=== PATIENT | male | born 1950 | race Caucasian/White ===

== ENCOUNTER → 2016-08-16 | Outpatient (REF) ==
[~2016-08-16] MED LIST: ARTANE 2MG2 MG PO; ASPIRIN 81M81 MG/TA2 PO; AVODART 0.5MG0.5 MG PO; CIPRO 500MG TA500 MG PO; CIPRO500 MG PO; DEPAKOTE 250MG250 MG PO; DESYREL 100MG100 MG PO; EFFEXOR-XR150 MG PO; FLOMAX 0.40.4 MG/CAP PO; FLOMAX0.4 MG PO; GEODON80 MG PO; HYTRIN2 MG PO; KLONOPIN 1MG1 MG PO; KLONOPIN2 MG PO; LAMICTAL; LATUDA80 MG PO; PROLIXIN10 MG PO; PROSCAR 5MG5 MG PO; RAPAFLO8 MG PO; RISPERDAL1 MG PO; RISPERDONE; SEROQUEL; SEROQUEL XR200 MG PO; SEROQUEL XR400 M1 PO; SEROQUEL200 MG PO; SEROQUEL300 MG PO; TRAZADONE HYDR100 MG PO; TRAZODONE HCL100 MG PO; [UNRECOGNIZED DRUG - OTHER] PO
== END ==
LOC: ZLAB.WCH 09:39
DX: Z01.89 Encounter for other specified special examinations (principal)

== ENCOUNTER → 2018-02-19 | Outpatient (REF) | LOC: ZLAB.WCH 18:31 | DX: Z01.89 Encounter for other specified special examinations (principal) ==

== ENCOUNTER 2018-05-06 20:59 | Emergency (ER) | payer MEDICARE, MEDICAID ==
[~2018-05-06] VITALS: Ht 175.3 cm; Wt 81.8 kg
[2018-05-06] MEDS ORDERED: SEROQUEL300 MG PO (21:33)
[2018-05-06 22:01] LABS: COLLECTION METHOD CLEAN CATCH
[2018-05-06 22:04] LABS: BASO # 0.1 (0.0-0.2); BASO % 1.2 % (0.0-2.0); EOS # 0.4 (0.0-0.7); EOS % 6.3 % (0-4.0); GRAN # 3.4 (1.4-6.5); GRAN % 52.3 % (42.2-75.2); HEMOGLOBIN 12.5 g/dl (13.5-18.0); LYMPH # 1.6 (1.2-3.4); LYMPH % 25.1 % (20.0-51.0); MEAN CELL VOLUME 92 fl (80.0-100.0); MEAN CORPUSCULAR HEMOGLOBIN 32 pg (27.0-31.0); MEAN CORPUSCULAR HGB CONC 34 g/dl (33.0-37.0); MEAN PLATELET VOLUME 9.1 fl (7.4-10.4); MONO % 14.9 % (1.7-9.3); PLATELET COUNT 234 K/mm3 (130-400); RED BLOOD COUNT 3.95 M/mm3 (4.20-5.60); REDCELL DISTRIBUTION WIDTH-CV 12.1 % (11.5-14.5)
[2018-05-06 22:07] LABS: HEMATOCRIT 36.4 % (42.0-52.0)
[2018-05-06 22:10] LABS: PH 7 (5-8); SQUAMOUS EPITHELIAL None Seen /hpf; URINE APPEARANCE Clear; URINE BACTERIA None Seen /hpf; URINE BILIRUBIN Negative (NEGATIVE); URINE BLOOD Negative (NEGATIVE); URINE COLOR Straw; URINE GLUCOSE Negative (NEGATIVE); URINE KETONE Negative (NEGATIVE); URINE LEUKOCYTE ESTERASE Trace (NEGATIVE); URINE NITRATE Negative (NEGATIVE); URINE PROTEIN(semi-quant) Negative (NEGATIVE); URINE RBC 0-2 /hpf; URINE UROBILINOGEN Negative (NEGATIVE)
[2018-05-06 22:24] LABS: ALANINE AMINOTRANSFERASE 31 U/L (21-72); ALBUMIN 4.4 gm/dL (3.5-5.0); ALKALINE PHOSPHATASE 86 U/L (50-136); ANION GAP 6 mmol/L (7-16); AST,SGOT 29 U/L (15-37); BILIRUBIN,TOTAL 0.5 mg/dL (0.0-1.0); BLOOD UREA NITROGEN 8 mg/dL (9-20); CALCIUM 9.1 mg/dL (8.4-10.2); CARBON DIOXIDE 26 mmol/L (22-30); CHLORIDE 97 mmol/L (98-107); CREATININE, serum 1.37 mg/dL (0.66-1.25); GLUCOSE 94 mg/dL (74-106); POTASSIUM 4.3 mmol/L (3.4-5.0); SODIUM 129 mmol/L (137-145); TOTAL PROTEIN 7.8 gm/dL (6.4-8.2)
[2018-05-06 22:27] LABS: TRICYCLIC ANTIDEPRESS URINE NEGATIVE
[2018-05-06 22:28] LABS: ACETAMINOPHEN < 10 ug/mL (10-30); ALCOHOL(ethanol),MEDICAL < 10 mg/dL; SALICYLATE < 1.0 mg/dL
[2018-05-07 07:01] LABS: CALCIUM 8.4 mg/dL (8.4-10.2); CREATININE, serum 1.17 mg/dL (0.66-1.25); POTASSIUM 4.2 mmol/L (3.4-5.0)
[2018-05-07 12:17] VITALS: TEMP 97.8
[2018-05-07 19:40] VITALS: BP 163/87; PULSE 79
== END 2018-05-07 19:40 ==
LOC: COL.ER 20:59
PROVIDERS: Emergency Medicine; Nurse Practitioner
DX: F20.0 Paranoid schizophrenia (principal); I10 Essential (primary) hypertension; F31.9 Bipolar disorder, unspecified; F17.210 Nicotine dependence, cigarettes, uncomplicated
CPT/HCPCS: J7030

== ENCOUNTER → 2018-06-02 | Outpatient (REF) ==
[2018-06-02 09:25] LABS: HIV 1/2 Antibodies Non-Reactive; HIV-1p24 Antigen Non-Reactive
== END ==
LOC: ZLAB.WCH 08:38
PROVIDERS: Family Medicine
DX: Z01.89 Encounter for other specified special examinations (principal)

== ENCOUNTER → 2018-06-06 | Outpatient (REF) | LOC: ZLAB.WCH 08:49 | DX: Z01.89 Encounter for other specified special examinations (principal) ==

== ENCOUNTER → 2019-04-19 | Emergency (ER) | payer MEDICARE, MEDICAID ==
[~2019-04-19] MED LIST changes: +PROLIX5TA PO; +SEROQUEL 200MG200 MG PO
[2019-04-19 01:01] LABS: BASO # 0.1 (0.0-0.2); BASO % 1.1 % (0.0-2.0); EOS # 0.5 (0.0-0.7); EOS % 7.7 % (0-4.0); GRAN # 3.4 (1.4-6.5); GRAN % 53.5 % (42.2-75.2); HEMOGLOBIN 12.1 g/dl (13.5-18.0); LYMPH # 1.5 (1.2-3.4); LYMPH % 23.5 % (20.0-51.0); MEAN CELL VOLUME 91 fl (80.0-100.0); MEAN CORPUSCULAR HEMOGLOBIN 31 pg (27.0-31.0); MEAN CORPUSCULAR HGB CONC 34 g/dl (33.0-37.0); MEAN PLATELET VOLUME 9.1 fl (7.4-10.4); MONO # 0.9 (0.1-0.6); MONO % 13.9 % (1.7-9.3); PLATELET COUNT 185 K/mm3 (130-400); REDCELL DISTRIBUTION WIDTH-CV 12.2 % (11.5-14.5)
[2019-04-19 01:02] LABS: HEMATOCRIT 35.4 % (42.0-52.0)
[2019-04-19 01:18] LABS: ALANINE AMINOTRANSFERASE 16 U/L (21-72); ALBUMIN 4.4 gm/dL (3.5-5.0); ALKALINE PHOSPHATASE 101 U/L (50-136); ANION GAP 7 mmol/L (7-16); AST,SGOT 27 U/L (15-37); BILIRUBIN,TOTAL 0.4 mg/dL (0.0-1.0); BLOOD UREA NITROGEN 18 mg/dL (9-20); CALCIUM 9.1 mg/dL (8.4-10.2); CARBON DIOXIDE 26 mmol/L (22-30); CHLORIDE 103 mmol/L (98-107); CREATININE, serum 1.37 (0.66-1.25); GLUCOSE 98 mg/dL (74-106); POTASSIUM 4.2 mmol/L (3.4-5.0); SODIUM 137 mmol/L (137-145); TOTAL PROTEIN 7.7 gm/dL (6.4-8.2)
[2019-04-19 01:27] LABS: ACETAMINOPHEN < 10 ug/mL (10-30); ALCOHOL(ethanol),MEDICAL < 10 mg/dL; SALICYLATE < 1.0 mg/dL
[2019-04-19 01:31] LABS: TROPONIN-I < 0.012 ng/mL (0.000-0.035)
[2019-04-19 02:42] LABS: COLLECTION METHOD CLEAN CATCH
[2019-04-19 02:49] LABS: PH 6 (5-8); SQUAMOUS EPITHELIAL None Seen /hpf; URINE APPEARANCE Clear; URINE BACTERIA None Seen /hpf; URINE BILIRUBIN Negative (NEGATIVE); URINE BLOOD Negative (NEGATIVE); URINE COLOR Straw; URINE GLUCOSE Negative (NEGATIVE); URINE KETONE Negative (NEGATIVE); URINE LEUKOCYTE ESTERASE Negative (NEGATIVE); URINE NITRATE Negative (NEGATIVE); URINE PROTEIN(semi-quant) Negative (NEGATIVE); URINE RBC None Seen /hpf; URINE UROBILINOGEN Negative (NEGATIVE)
[2019-04-19 03:00] LABS: TRICYCLIC ANTIDEPRESS URINE NEGATIVE
[2019-04-21 06:15] VITALS: TEMP 98.1
[2019-04-21 11:30] VITALS: BP 127/71; PULSE 84
== END ==
LOC: COL.ER 00:35
PROVIDERS: Emergency Medicine
DX: F20.9 Schizophrenia, unspecified (principal); F17.210 Nicotine dependence, cigarettes, uncomplicated

== ENCOUNTER 2019-05-22 12:16 | Emergency (ER) | payer MEDICARE, MEDICAID ==
[~2019-05-22] VITALS: Ht 175.3 cm; Wt 84.1 kg
[2019-05-22 12:20] VITALS: TEMP 97.9
[2019-05-22 13:54] LABS: BASO % 0.8 % (0.0-2.0); EOS # 0.4 (0.0-0.7); GRAN # 2.9 (1.4-6.5); GRAN % 58.2 % (42.2-75.2); HEMOGLOBIN 10.2 g/dl (13.5-18.0); LYMPH % 20.2 % (20.0-51.0); MEAN CELL VOLUME 93 fl (80.0-100.0); MEAN CORPUSCULAR HEMOGLOBIN 31 pg (27.0-31.0); MEAN CORPUSCULAR HGB CONC 33 g/dl (33.0-37.0); MEAN PLATELET VOLUME 9.2 fl (7.4-10.4); MONO # 0.7 (0.1-0.6); MONO % 13.4 % (1.7-9.3); PLATELET COUNT 178 K/mm3 (130-400); REDCELL DISTRIBUTION WIDTH-CV 12.3 % (11.5-14.5)
[2019-05-22 13:55] LABS: HEMATOCRIT 30.6 % (42.0-52.0)
[2019-05-22 14:07] LABS: ALANINE AMINOTRANSFERASE 16 U/L (21-72); ALBUMIN 3.8 gm/dL (3.5-5.0); ALKALINE PHOSPHATASE 83 U/L (50-136); ANION GAP 7 mmol/L (7-16); AST,SGOT 29 U/L (15-37); BILIRUBIN,TOTAL 0.3 mg/dL (0.0-1.0); BLOOD UREA NITROGEN 13 mg/dL (9-20); CALCIUM 8.6 mg/dL (8.4-10.2); CARBON DIOXIDE 25 mmol/L (22-30); CHLORIDE 99 mmol/L (98-107); CREATININE, serum 1.44 (0.66-1.25); GLUCOSE 84 mg/dL (74-106); POTASSIUM 4.4 mmol/L (3.4-5.0); SODIUM 131 mmol/L (137-145); TOTAL PROTEIN 6.7 gm/dL (6.4-8.2)
[2019-05-22 14:08] LABS: TRICYCLIC ANTIDEPRESS URINE POSITIVE
[2019-05-22 14:08] LABS: ACETAMINOPHEN < 10 ug/mL (10-30); ALCOHOL(ethanol),MEDICAL < 10 mg/dL; SALICYLATE < 1.0 mg/dL
[2019-05-22 21:30] VITALS: BP 130/82; PULSE 89
== END 2019-05-22 21:30 ==
LOC: COL.ER 12:16
PROVIDERS: Nurse Practitioner
DX: F20.0 Paranoid schizophrenia (principal); F31.9 Bipolar disorder, unspecified; F17.210 Nicotine dependence, cigarettes, uncomplicated

== ENCOUNTER 2019-07-16 17:09 | Emergency (ER) | payer MEDICARE, MEDICAID ==
[~2019-07-16] VITALS: Ht 175.3 cm; Wt 79.5 kg
[2019-07-16 17:20] VITALS: BP 135/69; TEMP 98
[2019-07-16 17:31] LABS: COLLECTION METHOD CLEAN CATCH
[2019-07-16 17:38] LABS: PH 6 (5-8); SQUAMOUS EPITHELIAL 0-2 /hpf; URINE APPEARANCE Clear; URINE BACTERIA None Seen /hpf; URINE BILIRUBIN Negative (NEGATIVE); URINE BLOOD 1+ (NEGATIVE); URINE COLOR Yellow; URINE GLUCOSE Negative (NEGATIVE); URINE KETONE Negative (NEGATIVE); URINE LEUKOCYTE ESTERASE Negative (NEGATIVE); URINE NITRATE Negative (NEGATIVE); URINE PROTEIN(semi-quant) Negative (NEGATIVE); URINE RBC 0-2 /hpf; URINE UROBILINOGEN Negative (NEGATIVE)
[2019-07-16 17:55] LABS: TRICYCLIC ANTIDEPRESS URINE NEGATIVE
[2019-07-16 18:18] LABS: BASO # 0.1 (0.0-0.2); BASO % 1.2 % (0.0-2.0); EOS # 0.7 (0.0-0.7); EOS % 12.5 % (0-4.0); GRAN # 2.9 (1.4-6.5); GRAN % 48.6 % (42.2-75.2); HEMOGLOBIN 11.1 g/dl (13.5-18.0); LYMPH # 1.2 (1.2-3.4); LYMPH % 19.6 % (20.0-51.0); MEAN CELL VOLUME 92 fl (80.0-100.0); MEAN CORPUSCULAR HEMOGLOBIN 32 pg (27.0-31.0); MEAN CORPUSCULAR HGB CONC 34 g/dl (33.0-37.0); MEAN PLATELET VOLUME 8.7 fl (7.4-10.4); MONO # 1.1 (0.1-0.6); MONO % 17.9 % (1.7-9.3); PLATELET COUNT 221 K/mm3 (130-400); RED BLOOD COUNT 3.52 M/mm3 (4.20-5.60); REDCELL DISTRIBUTION WIDTH-CV 12.5 % (11.5-14.5)
[2019-07-16 18:22] LABS: ACETAMINOPHEN < 10 ug/mL (10-30); ALANINE AMINOTRANSFERASE 35 U/L (21-72); ALBUMIN 4.2 gm/dL (3.5-5.0); ALCOHOL(ethanol),MEDICAL < 10 mg/dL; ALKALINE PHOSPHATASE 118 U/L (50-136); ANION GAP 5 mmol/L (7-16); AST,SGOT 35 U/L (15-37); BILIRUBIN,TOTAL 0.2 mg/dL (0.0-1.0); BLOOD UREA NITROGEN 24 mg/dL (9-20); CALCIUM 8.9 mg/dL (8.4-10.2); CARBON DIOXIDE 28 mmol/L (22-30); CHLORIDE 98 mmol/L (98-107); GLUCOSE 96 mg/dL (74-106); POTASSIUM 4.7 mmol/L (3.4-5.0); SALICYLATE < 1.0 mg/dL; SODIUM 130 mmol/L (137-145); TOTAL PROTEIN 7.3 gm/dL (6.4-8.2)
[2019-07-16 18:30] LABS: HEMATOCRIT 32.3 % (42.0-52.0)
[2019-07-17 01:15] VITALS: PULSE 70
== END 2019-07-17 01:18 ==
LOC: COL.ER 17:09
PROVIDERS: Emergency Medicine
DX: F20.0 Paranoid schizophrenia (principal); F31.9 Bipolar disorder, unspecified; F17.210 Nicotine dependence, cigarettes, uncomplicated

== ENCOUNTER 2019-08-25 12:04 | Emergency (ER) | payer MEDICARE, MEDICAID ==
[~2019-08-25] VITALS: Ht 175.3 cm; Wt 77.3 kg
[2019-08-25 12:19] VITALS: TEMP 97.9
[2019-08-25 13:18] LABS: BASO # 0.1 (0.0-0.2); BASO % 1.2 % (0.0-2.0); EOS # 0.3 (0.0-0.7); EOS % 3.8 % (0-4.0); GRAN # 4.1 (1.4-6.5); GRAN % 61.4 % (42.2-75.2); HEMOGLOBIN 11.5 g/dl (13.5-18.0); LYMPH # 1.1 (1.2-3.4); LYMPH % 16.5 % (20.0-51.0); MEAN CELL VOLUME 93 fl (80.0-100.0); MEAN CORPUSCULAR HEMOGLOBIN 31 pg (27.0-31.0); MEAN CORPUSCULAR HGB CONC 33 g/dl (33.0-37.0); MEAN PLATELET VOLUME 8.5 fl (7.4-10.4); MONO # 1.1 (0.1-0.6); MONO % 16.8 % (1.7-9.3); PLATELET COUNT 302 K/mm3 (130-400); RED BLOOD COUNT 3.73 M/mm3 (4.20-5.60); REDCELL DISTRIBUTION WIDTH-CV 12.7 % (11.5-14.5)
[2019-08-25 13:27] LABS: ALANINE AMINOTRANSFERASE 36 U/L (21-72); ALBUMIN 4.9 gm/dL (3.5-5.0); ALKALINE PHOSPHATASE 135 U/L (50-136); ANION GAP 11 mmol/L (7-16); AST,SGOT 42 U/L (15-37); BILIRUBIN,TOTAL 0.7 mg/dL (0.0-1.0); BLOOD UREA NITROGEN 21 mg/dL (9-20); CALCIUM 9.3 mg/dL (8.4-10.2); CARBON DIOXIDE 26 mmol/L (22-30); CHLORIDE 95 mmol/L (98-107); CREATININE, serum 1.38 (0.66-1.25); GLUCOSE 99 mg/dL (74-106); MAGNESIUM 1.9 mg/dL (1.6-2.3); POTASSIUM 4.9 mmol/L (3.4-5.0); SODIUM 132 mmol/L (137-145); TOTAL PROTEIN 8.7 gm/dL (6.4-8.2)
[2019-08-25 13:28] LABS: ACETAMINOPHEN < 10 ug/mL (10-30); ALCOHOL(ethanol),MEDICAL < 10 mg/dL; SALICYLATE < 1.0 mg/dL
[2019-08-25 13:31] LABS: HEMATOCRIT 34.8 % (42.0-52.0)
[2019-08-25 15:36] LABS: COLLECTION METHOD CLEAN CATCH
[2019-08-25 15:45] LABS: PH 7 (5-8); SQUAMOUS EPITHELIAL None Seen /hpf; URINE APPEARANCE Clear; URINE BACTERIA None Seen /hpf; URINE BILIRUBIN Negative (NEGATIVE); URINE BLOOD Negative (NEGATIVE); URINE COLOR Yellow; URINE GLUCOSE Negative (NEGATIVE); URINE KETONE Negative (NEGATIVE); URINE LEUKOCYTE ESTERASE Negative (NEGATIVE); URINE NITRATE Negative (NEGATIVE); URINE PROTEIN(semi-quant) Negative (NEGATIVE); URINE RBC 0-2 /hpf; URINE UROBILINOGEN Negative (NEGATIVE)
[2019-08-25 15:56] LABS: TRICYCLIC ANTIDEPRESS URINE NEGATIVE
[2019-08-26 00:18] VITALS: BP 118/83; PULSE 75
== END 2019-08-26 00:18 ==
LOC: COL.ER 12:04
PROVIDERS: Emergency Medicine
DX: F29 Unspecified psychosis not due to a substance or known physiological condition (principal); F20.9 Schizophrenia, unspecified; F17.210 Nicotine dependence, cigarettes, uncomplicated

== ENCOUNTER 2021-02-03 | Emergency (ER) | payer MEDICARE, MEDICAID ==
[~2021-02-03] VITALS: Ht 152.4 cm; Wt 88.6 kg
[2021-02-03 01:12] LABS: BASO # 0.1 (0.0-0.2); BASO % 0.9 % (0.0-2.0); EOS # 0.4 (0.0-0.7); EOS % 7.3 % (0-4.0); GRAN # 3.3 (1.4-6.5); GRAN % 56.7 % (42.2-75.2); HEMOGLOBIN 10.8 g/dl (13.5-18.0); LYMPH # 1.2 (1.2-3.4); LYMPH % 20.3 % (20.0-51.0); MEAN CELL VOLUME 90 fl (80.0-100.0); MEAN CORPUSCULAR HEMOGLOBIN 32 pg (27.0-31.0); MEAN CORPUSCULAR HGB CONC 36 g/dl (33.0-37.0); MEAN PLATELET VOLUME 9.3 fl (7.4-10.4); MONO # 0.8 (0.1-0.6); MONO % 14.3 % (1.7-9.3); PLATELET COUNT 159 K/mm3 (130-400); RED BLOOD COUNT 3.35 M/mm3 (4.20-5.60); REDCELL DISTRIBUTION WIDTH-CV 12.1 % (11.5-14.5)
[2021-02-03 01:13] LABS: HEMATOCRIT 30.2 % (42.0-52.0)
[2021-02-03 01:24] LABS: ALANINE AMINOTRANSFERASE 21 U/L (4-49); ALKALINE PHOSPHATASE 111 U/L (50-136); ANION GAP 4 mmol/L (7-16); AST,SGOT 43 U/L (15-37); BILIRUBIN,TOTAL 0.4 mg/dL (0.0-1.0); BLOOD UREA NITROGEN 19 mg/dL (9-20); C-REACTIVE PROTEIN < 0.5 mg/dL (0.0-0.9); CALCIUM 8.7 mg/dL (8.4-10.2); CARBON DIOXIDE 24 mmol/L (22-30); CHLORIDE 97 mmol/L (98-107); CREATININE, serum 1.28 (0.66-1.25); GLUCOSE 93 mg/dL (74-106); LIPASE 70 U/L (23-300); POTASSIUM 4.6 mmol/L (3.4-5.0); SODIUM 125 mmol/L (137-145); TOTAL PROTEIN 7.2 gm/dL (6.4-8.2)
[2021-02-03] MEDS ORDERED: ZOFRAN ODT4 MG PO (02:35)
[2021-02-03 03:02] VITALS: BP 135/72; PULSE 61; TEMP 97.8
== END 2021-02-03 03:02 | disposition home or self-care (01) ==
LOC: COL.ER
PROVIDERS: Emergency Medicine
DX: R10.9 Unspecified abdominal pain (principal); R11.2 Nausea with vomiting, unspecified; K59.00 Constipation, unspecified; F20.0 Paranoid schizophrenia; Z88.8 Allergy status to other drugs, medicaments and biological substances; Z79.899 Other long term (current) drug therapy
CPT/HCPCS: J2405; J7030

== ENCOUNTER 2021-02-06 15:45 | Emergency (ER) | payer MEDICARE, MEDICAID ==
[~2021-02-06] VITALS: Ht 177.8 cm; Wt 86.4 kg
[~2021-02-06 15:45] MED LIST changes: +ZOFRAN ODT4 MG PO
[2021-02-06 16:04] VITALS: TEMP 97.8
[2021-02-06 16:07] LABS: COLLECTION METHOD CLEAN CATCH
[2021-02-06 16:13] LABS: PH 6 (5-8); SQUAMOUS EPITHELIAL None Seen /hpf; URINE APPEARANCE Clear; URINE BACTERIA None Seen /hpf; URINE BILIRUBIN Negative (NEGATIVE); URINE BLOOD 1+ (NEGATIVE); URINE COLOR Straw; URINE GLUCOSE Negative (NEGATIVE); URINE KETONE Negative (NEGATIVE); URINE LEUKOCYTE ESTERASE Trace (NEGATIVE); URINE NITRATE Negative (NEGATIVE); URINE PROTEIN(semi-quant) Negative (NEGATIVE); URINE RBC 0-2 /hpf; URINE UROBILINOGEN Negative (NEGATIVE)
[2021-02-06 16:43] VITALS: BP 127/91; PULSE 80
== END 2021-02-06 16:43 | disposition home or self-care (01) ==
LOC: COL.ER 15:45
PROVIDERS: Emergency Medicine
DX: R33.9 Retention of urine, unspecified (principal); F20.0 Paranoid schizophrenia; F17.290 Nicotine dependence, other tobacco product, uncomplicated; Z01.89 Encounter for other specified special examinations; Z79.899 Other long term (current) drug therapy

== ENCOUNTER 2021-02-08 16:21 | Emergency (ER) | payer MEDICARE, MEDICAID ==
[~2021-02-08] VITALS: Ht 175.3 cm; Wt 88.6 kg
[2021-02-08 17:24] VITALS: BP 159/86; TEMP 98.3
[2021-02-08] MEDS ORDERED: MIRALAX119G PO (18:54)
[2021-02-08] MEDS ORDERED: DULCOLAX STOOL100 MG PO (18:54)
[2021-02-08 19:15] VITALS: PULSE 91
== END 2021-02-08 19:15 | disposition home or self-care (01) ==
LOC: COL.ER 16:21
DX: S93.401A Sprain of unspecified ligament of right ankle, initial encounter (principal); K59.00 Constipation, unspecified; F20.0 Paranoid schizophrenia; F43.10 Post-traumatic stress disorder, unspecified; Z88.8 Allergy status to other drugs, medicaments and biological substances; Z79.899 Other long term (current) drug therapy; X58.XXXA Exposure to other specified factors, initial encounter

== ENCOUNTER 2021-02-15 16:27 | Emergency (ER) | payer MEDICARE, MEDICAID ==
[~2021-02-15] VITALS: Ht 175.3 cm; Wt 86.4 kg
[~2021-02-15 16:27] MED LIST changes: +DULCOLAX STOOL100 MG PO; +MIRALAX119G PO
[2021-02-15 17:06] LABS: BASO % 0.9 % (0.0-2.0); EOS # 0.4 (0.0-0.7); EOS % 9.5 % (0-4.0); GRAN # 2.3 (1.4-6.5); GRAN % 49.3 % (42.2-75.2); HEMATOCRIT 29.6 % (42.0-52.0); HEMOGLOBIN 10.2 g/dl (13.5-18.0); LYMPH # 1.2 (1.2-3.4); LYMPH % 24.8 % (20.0-51.0); MEAN CELL VOLUME 93 fl (80.0-100.0); MEAN CORPUSCULAR HEMOGLOBIN 32 pg (27.0-31.0); MEAN CORPUSCULAR HGB CONC 35 g/dl (33.0-37.0); MEAN PLATELET VOLUME 8.9 fl (7.4-10.4); MONO # 0.7 (0.1-0.6); MONO % 15.3 % (1.7-9.3); PLATELET COUNT 212 K/mm3 (130-400); REDCELL DISTRIBUTION WIDTH-CV 12.5 % (11.5-14.5)
[2021-02-15 17:15] LABS: ALANINE AMINOTRANSFERASE 20 U/L (4-49); ALBUMIN 3.9 gm/dL (3.5-5.0); ALKALINE PHOSPHATASE 103 U/L (50-136); ANION GAP 4 mmol/L (7-16); AST,SGOT 33 U/L (15-37); BILIRUBIN,TOTAL 0.2 mg/dL (0.0-1.0); BLOOD UREA NITROGEN 16 mg/dL (9-20); CALCIUM 8.6 mg/dL (8.4-10.2); CARBON DIOXIDE 24 mmol/L (22-30); CHLORIDE 96 mmol/L (98-107); CREATININE, serum 1.12 (0.66-1.25); GLUCOSE 125 mg/dL (74-106); SODIUM 124 mmol/L (137-145)
[2021-02-15 17:28] LABS: TROPONIN-I < 0.012 ng/mL (0.000-0.035)
[2021-02-15 18:50] VITALS: BP 123/65; PULSE 87
== END 2021-02-15 18:50 | disposition home or self-care (01) ==
LOC: COL.ER 16:27
PROVIDERS: Emergency Medicine
DX: R07.2 Precordial pain (principal); F43.10 Post-traumatic stress disorder, unspecified; F20.0 Paranoid schizophrenia; F17.210 Nicotine dependence, cigarettes, uncomplicated; Z88.8 Allergy status to other drugs, medicaments and biological substances; Z79.899 Other long term (current) drug therapy

== ENCOUNTER 2021-05-02 11:17 | Emergency (ER) | payer MEDICARE, MEDICAID ==
[~2021-05-02] VITALS: Ht 175.3 cm; Wt 82.7 kg
[2021-05-02 11:48] VITALS: BP 138/85; PULSE 98; TEMP 98.3
[2021-05-02 12:23] LABS: BASO # 0.1 (0.0-0.2); BASO % 1.2 % (0.0-2.0); EOS # 0.7 (0.0-0.7); EOS % 12.3 % (0-4.0); GRAN # 2.9 (1.4-6.5); GRAN % 51.9 % (42.2-75.2); HEMATOCRIT 37.5 % (42.0-52.0); LYMPH # 1.2 (1.2-3.4); LYMPH % 21.2 % (20.0-51.0); MEAN CELL VOLUME 100 fl (80.0-100.0); MEAN CORPUSCULAR HEMOGLOBIN 32 pg (27.0-31.0); MEAN CORPUSCULAR HGB CONC 32 g/dl (33.0-37.0); MEAN PLATELET VOLUME 9.2 fl (7.4-10.4); MONO # 0.7 (0.1-0.6); MONO % 13.2 % (1.7-9.3); PLATELET COUNT 206 K/mm3 (130-400); RED BLOOD COUNT 3.76 M/mm3 (4.20-5.60); REDCELL DISTRIBUTION WIDTH-CV 12.3 % (11.5-14.5)
[2021-05-02 12:52] LABS: ALANINE AMINOTRANSFERASE 13 U/L (0-55); ALKALINE PHOSPHATASE 106 U/L (0-750); ANION GAP 10 mmol/L; AST,SGOT 19 U/L (5-34); BILIRUBIN,TOTAL 0.3 mg/dL (0.2-1.2); BLOOD UREA NITROGEN 11 mg/dL (8-26); CALCIUM 9.1 mg/dL (8.4-10.2); CARBON DIOXIDE 22 mEq/L (23-31); CHLORIDE 97 mmol/L (98-107); CREATININE, serum 1.58 mg/dL (0.72-1.25); GLUCOSE 79 mg/dL (70-99); POTASSIUM 4.4 mmol/L (3.5-4.5); SODIUM 129 mmol/L (136-145); TOTAL PROTEIN 7.4 gm/dL (6.2-8.1)
[2021-05-02 12:53] LABS: ACETAMINOPHEN < 1.0 ug/mL (10-30); ALCOHOL(ethanol),MEDICAL < 10 mg/dL (0-10); SALICYLATE < 5.0 mg/dL (15.0-30.0)
[2021-05-02 13:00] LABS: COLLECTION METHOD CLEAN CATCH
[2021-05-02 13:07] LABS: PH 7 (5-8); SQUAMOUS EPITHELIAL None Seen /hpf; URINE APPEARANCE Clear; URINE BACTERIA None Seen /hpf; URINE BILIRUBIN Negative (NEGATIVE); URINE BLOOD Negative (NEGATIVE); URINE COLOR Yellow; URINE GLUCOSE Negative (NEGATIVE); URINE KETONE Negative (NEGATIVE); URINE LEUKOCYTE ESTERASE Negative (NEGATIVE); URINE NITRATE Negative (NEGATIVE); URINE PROTEIN(semi-quant) Negative (NEGATIVE); URINE RBC 0-2 /hpf; URINE UROBILINOGEN Negative (NEGATIVE)
[2021-05-02 13:21] LABS: TRICYCLIC ANTIDEPRESS URINE POSITIVE
== END 2021-05-02 15:43 | disposition left against medical advice (07) ==
LOC: COL.ER 11:17
PROVIDERS: Nurse Practitioner
DX: F20.9 Schizophrenia, unspecified (principal); F17.210 Nicotine dependence, cigarettes, uncomplicated; Z88.8 Allergy status to other drugs, medicaments and biological substances; Z79.899 Other long term (current) drug therapy

== ENCOUNTER 2021-05-09 00:41 | Emergency (ER) | payer MEDICARE, MEDICAID | END 2021-05-09 00:45 | disposition left against medical advice (07) | LOC: COL.ER 00:41 | DX: R69 Illness, unspecified (principal) ==

== ENCOUNTER 2021-05-29 01:19 | Emergency (ER) | payer MEDICARE, MEDICAID ==
[~2021-05-29] VITALS: Ht 175.3 cm; Wt 82.7 kg
[2021-05-29 01:37] LABS: BASO # 0.1 K/mm3 (0.0-0.2); BASO % 0.9 % (0.0-2.0); EOS # 0.7 K/mm3 (0.0-0.7); EOS % 12.5 % (0-4.0); GRAN # 2.8 K/mm3 (1.4-6.5); GRAN % 52.9 % (42.2-75.2); HEMOGLOBIN 10.9 g/dl (13.5-18.0); LYMPH % 19.7 % (20.0-51.0); MEAN CELL VOLUME 93 fl (80.0-100.0); MEAN CORPUSCULAR HEMOGLOBIN 32 pg (27.0-31.0); MEAN CORPUSCULAR HGB CONC 35 g/dl (33.0-37.0); MEAN PLATELET VOLUME 9.5 fl (7.4-10.4); MONO # 0.7 K/mm3 (0.1-0.6); MONO % 13.6 % (1.7-9.3); PLATELET COUNT 206 K/mm3 (130-400); REDCELL DISTRIBUTION WIDTH-CV 12.3 % (11.5-14.5)
[2021-05-29 01:40] LABS: HEMATOCRIT 31.6 % (42.0-52.0)
[2021-05-29 01:51] LABS: ALANINE AMINOTRANSFERASE 19 U/L (0-55); ALBUMIN 3.8 gm/dL (3.4-4.8); ALKALINE PHOSPHATASE 110 U/L (40-150); ANION GAP 11 mmol/L (7-16); AST,SGOT 26 U/L (5-34); BILIRUBIN,TOTAL 0.3 mg/dL (0.2-1.2); BLOOD UREA NITROGEN 13 mg/dL (8-26); CALCIUM 9.1 mg/dL (8.4-10.2); CARBON DIOXIDE 22 mmol/L (23-31); CHLORIDE 103 mmol/L (98-107); CREATININE, serum 1.42 mg/dL (0.72-1.25); GLUCOSE 135 mg/dL (70-99); POTASSIUM 4.3 mmol/L (3.5-4.5); SODIUM 136 mmol/L (136-145); TOTAL PROTEIN 6.8 gm/dL (6.2-8.1)
[2021-05-29 02:42] LABS: TROPONIN-I < 0.010 ng/mL (0.00-0.033)
[2021-05-29 03:12] VITALS: BP 150/71; PULSE 101
== END 2021-05-29 03:14 | disposition home or self-care (01) ==
LOC: COL.ER 01:19
PROVIDERS: Physician Assistant
DX: R55 Syncope and collapse (principal); F20.0 Paranoid schizophrenia; E78.5 Hyperlipidemia, unspecified; F43.10 Post-traumatic stress disorder, unspecified; F17.210 Nicotine dependence, cigarettes, uncomplicated; Z20.822 Contact with and (suspected) exposure to COVID-19; Z79.899 Other long term (current) drug therapy
CPT/HCPCS: J7030

== ENCOUNTER 2021-08-15 05:34 | Emergency (ER) | payer MEDICARE, MEDICAID ==
[~2021-08-15] VITALS: Ht 175.3 cm; Wt 83.2 kg
[2021-08-15 05:40] VITALS: TEMP 98.2
[2021-08-15 06:39] VITALS: BP 162/104; PULSE 79
== END 2021-08-15 06:55 | disposition home or self-care (01) ==
LOC: COL.ER 05:34
DX: M25.562 Pain in left knee (principal); F20.0 Paranoid schizophrenia; F43.10 Post-traumatic stress disorder, unspecified; Z79.899 Other long term (current) drug therapy
CPT/HCPCS: J1885

== ENCOUNTER 2021-08-15 10:55 | Emergency (ER) | payer MEDICARE, MEDICAID ==
[~2021-08-15] VITALS: Ht 175.3 cm; Wt 79.5 kg
[2021-08-15 11:08] VITALS: BP 150/67; PULSE 71; TEMP 97.3
[2021-08-15 11:46] LABS: BASO % 0.5 % (0.0-2.0); EOS # 0.1 K/mm3 (0.0-0.7); GRAN # 4.2 K/mm3 (1.4-6.5); GRAN % 69.1 % (42.2-75.2); HEMOGLOBIN 10.6 g/dl (13.5-18.0); LYMPH # 0.8 K/mm3 (1.2-3.4); LYMPH % 12.9 % (20.0-51.0); MEAN CELL VOLUME 93 fl (80.0-100.0); MEAN CORPUSCULAR HEMOGLOBIN 32 pg (27-31); MEAN CORPUSCULAR HGB CONC 34 g/dl (33.0-37.0); MEAN PLATELET VOLUME 8.4 fl (7.4-10.4); MONO # 0.9 K/mm3 (0.1-0.6); MONO % 15.3 % (1.7-9.3); PLATELET COUNT 265 K/mm3 (130-400); RED BLOOD COUNT 3.37 M/mm3 (4.20-5.60); REDCELL DISTRIBUTION WIDTH-CV 12.5 % (11.5-14.5)
[2021-08-15 11:47] LABS: HEMATOCRIT 31.2 % (42.0-52.0)
[2021-08-15 12:14] LABS: ALANINE AMINOTRANSFERASE 22 U/L (0-55); ALBUMIN 3.9 gm/dL (3.4-4.8); ALKALINE PHOSPHATASE 85 U/L (40-150); ANION GAP 10 mmol/L (7-16); AST,SGOT 36 U/L (5-34); BILIRUBIN,TOTAL 0.6 mg/dL (0.2-1.2); BLOOD UREA NITROGEN 15 mg/dL (8-26); CALCIUM 8.6 mg/dL (8.4-10.2); CARBON DIOXIDE 20 mmol/L (23-31); CHLORIDE 93 mmol/L (98-107); CREATININE, serum 1.49 mg/dL (0.72-1.25); GLUCOSE 94 mg/dL (70-99); POTASSIUM 5.5 mmol/L (3.5-4.5); SODIUM 123 mmol/L (136-145); TOTAL PROTEIN 7.3 gm/dL (6.2-8.1)
[2021-08-15 12:21] LABS: ALCOHOL(ethanol),MEDICAL < 10 mg/dL (0-10); SALICYLATE < 5.0 mg/dL (15.0-30.0)
[2021-08-15 12:39] LABS: COLLECTION METHOD CLEAN CATCH
[2021-08-15 12:48] LABS: PH 6 (5-8); SQUAMOUS EPITHELIAL None Seen /hpf (0-10); URINE APPEARANCE Clear (CLEAR/HAZY); URINE BACTERIA None Seen /hpf (NONE SEEN); URINE BILIRUBIN Negative (NEGATIVE); URINE BLOOD Negative (NEGATIVE); URINE COLOR Yellow (YELLOW); URINE GLUCOSE Negative (NEGATIVE); URINE KETONE Trace (NEGATIVE); URINE LEUKOCYTE ESTERASE Negative (NEGATIVE); URINE NITRATE Negative (NEGATIVE); URINE PROTEIN(semi-quant) Negative (NEGATIVE); URINE RBC 0-2 /hpf (0-2)
[2021-08-15 12:56] LABS: TRICYCLIC ANTIDEPRESS URINE POSITIVE
== END 2021-08-15 14:58 | disposition left against medical advice (07) ==
LOC: COL.ER 10:55
PROVIDERS: Nurse Practitioner
DX: F20.0 Paranoid schizophrenia (principal); F43.10 Post-traumatic stress disorder, unspecified; F17.210 Nicotine dependence, cigarettes, uncomplicated; Z20.822 Contact with and (suspected) exposure to COVID-19; Z79.899 Other long term (current) drug therapy

== ENCOUNTER 2021-08-15 16:36 | Emergency (ER) | payer MEDICARE, MEDICAID ==
[~2021-08-15] VITALS: Ht 175.3 cm; Wt 83.2 kg
[2021-08-15 16:56] VITALS: TEMP 98.1
[2021-08-15 19:11] VITALS: BP 155/91; PULSE 78
== END 2021-08-15 19:20 | disposition left against medical advice (07) ==
LOC: COL.ER 16:36
DX: F20.0 Paranoid schizophrenia (principal); F43.10 Post-traumatic stress disorder, unspecified; F17.200 Nicotine dependence, unspecified, uncomplicated; Z79.899 Other long term (current) drug therapy

== ENCOUNTER 2021-08-21 03:58 | Emergency (ER) | payer MEDICARE, MEDICAID ==
[~2021-08-21] VITALS: Ht 175.3 cm; Wt 83.2 kg
[2021-08-21 04:12] VITALS: TEMP 98.7
[2021-08-21 04:56] LABS: BASO # 0.1 K/mm3 (0.0-0.2); BASO % 0.8 % (0.0-2.0); EOS # 0.1 K/mm3 (0.0-0.7); EOS % 0.9 % (0.0-4.0); GRAN # 4.3 K/mm3 (1.4-6.5); GRAN % 66.4 % (42.2-75.2); HEMOGLOBIN 11.5 g/dl (13.5-18.0); LYMPH # 1.1 K/mm3 (1.2-3.4); LYMPH % 16.1 % (20.0-51.0); MEAN CELL VOLUME 91 fl (80.0-100.0); MEAN CORPUSCULAR HEMOGLOBIN 32 pg (27-31); MEAN CORPUSCULAR HGB CONC 35 g/dl (33.0-37.0); MEAN PLATELET VOLUME 8.2 fl (7.4-10.4); MONO % 15.5 % (1.7-9.3); PLATELET COUNT 286 K/mm3 (130-400); RED BLOOD COUNT 3.65 M/mm3 (4.20-5.60); REDCELL DISTRIBUTION WIDTH-CV 12.7 % (11.5-14.5)
[2021-08-21 04:57] LABS: HEMATOCRIT 33.2 % (42.0-52.0)
[2021-08-21 05:13] LABS: ALANINE AMINOTRANSFERASE 20 U/L (0-55); ALBUMIN 4.2 gm/dL (3.4-4.8); ALKALINE PHOSPHATASE 95 U/L (40-150); ANION GAP 10 mmol/L (7-16); AST,SGOT 26 U/L (5-34); BILIRUBIN,TOTAL 0.8 mg/dL (0.2-1.2); BLOOD UREA NITROGEN 11 mg/dL (8-26); CARBON DIOXIDE 22 mmol/L (23-31); CHLORIDE 95 mmol/L (98-107); CREATININE, serum 1.25 mg/dL (0.72-1.25); GLUCOSE 99 mg/dL (70-99); POTASSIUM 4.7 mmol/L (3.5-4.5); SODIUM 127 mmol/L (136-145); TOTAL PROTEIN 7.5 gm/dL (6.2-8.1)
[2021-08-21 05:15] LABS: ALCOHOL(ethanol),MEDICAL < 10 mg/dL (0-10)
[2021-08-21 09:05] VITALS: BP 164/94; PULSE 77
--- NOTE | 2021-08-21 12:01 | NUR ---
ILENE responded to consult. The patient was requesting to go to the Crisis Stabilization Unit. The ED doctor did not feel like an eval from [facility] was necessary. [facility] was contacted on the patient. The therapist informed the RN that if that patient continus to wish to go to [facility] after discharge, that the patient is able to go there and be assessed outside of the ED. The patient's RN then informed ILENE that the patient informed her that he had a beautiful breakfast here and is okay to go home. The patient discharged from the ED home. ILENE made an APS report. Intake ID#[id number].
== END 2021-08-21 09:05 | disposition home or self-care (01) ==
LOC: COL.ER 03:58
PROVIDERS: Personal Emergency Response Attendant
DX: M25.562 Pain in left knee (principal); E87.1 Hypo-osmolality and hyponatremia; R44.1 Visual hallucinations; F43.10 Post-traumatic stress disorder, unspecified; Z72.0 Tobacco use; Z20.822 Contact with and (suspected) exposure to COVID-19; Z79.899 Other long term (current) drug therapy

== ENCOUNTER 2021-08-21 13:37 | Emergency (ER) | payer MEDICARE, MEDICAID ==
[2021-08-21 14:00] VITALS: TEMP 98
[2021-08-21 15:32] LABS: COLLECTION METHOD CLEAN CATCH
[2021-08-21 15:37] LABS: PH 7 (5-8); SQUAMOUS EPITHELIAL 0-2 /hpf (0-10); URINE APPEARANCE Clear (CLEAR/HAZY); URINE BACTERIA None Seen /hpf (NONE SEEN); URINE BILIRUBIN Negative (NEGATIVE); URINE BLOOD Negative (NEGATIVE); URINE COLOR Yellow (YELLOW); URINE GLUCOSE Negative (NEGATIVE); URINE KETONE Negative (NEGATIVE); URINE LEUKOCYTE ESTERASE Negative (NEGATIVE); URINE NITRATE Negative (NEGATIVE); URINE PROTEIN(semi-quant) Negative (NEGATIVE); URINE RBC 0-2 /hpf (0-2); URINE UROBILINOGEN Negative (NEGATIVE)
[2021-08-21 15:50] LABS: TRICYCLIC ANTIDEPRESS URINE POSITIVE
[2021-08-21 16:38] LABS: CALCIUM 8.7 mg/dL (8.4-10.2); CREATININE, serum 1.19 mg/dL (0.72-1.25); POTASSIUM 4.8 mmol/L (3.5-4.5)
[2021-08-21 17:30] VITALS: BP 132/76; PULSE 89
== END 2021-08-22 12:54 | disposition left against medical advice (07) ==
LOC: COL.ER 13:37
PROVIDERS: Physician Assistant
DX: F20.0 Paranoid schizophrenia (principal); M25.569 Pain in unspecified knee; G89.29 Other chronic pain; Z88.6 Allergy status to analgesic agent

== ENCOUNTER 2021-08-25 10:01 | Emergency (ER) | payer MEDICARE, MEDICAID ==
[~2021-08-25] VITALS: Ht 175.3 cm; Wt 77.7 kg
[2021-08-25 10:02] VITALS: BP 127/77; PULSE 72; TEMP 98
[2021-08-25 11:03] LABS: BASO % 0.6 % (0.0-2.0); EOS % 0.6 % (0.0-4.0); GRAN # 4.2 K/mm3 (1.4-6.5); GRAN % 67.4 % (42.2-75.2); HEMOGLOBIN 11.7 g/dl (13.5-18.0); LYMPH # 0.9 K/mm3 (1.2-3.4); LYMPH % 14.4 % (20.0-51.0); MEAN CELL VOLUME 92 fl (80.0-100.0); MEAN CORPUSCULAR HEMOGLOBIN 32 pg (27-31); MEAN CORPUSCULAR HGB CONC 35 g/dl (33.0-37.0); MEAN PLATELET VOLUME 8.5 fl (7.4-10.4); MONO % 16.7 % (1.7-9.3); PLATELET COUNT 286 K/mm3 (130-400); REDCELL DISTRIBUTION WIDTH-CV 12.6 % (11.5-14.5)
[2021-08-25 11:04] LABS: HEMATOCRIT 33.9 % (42.0-52.0)
[2021-08-25 11:24] LABS: ALANINE AMINOTRANSFERASE 24 U/L (0-55); ALBUMIN 4.3 gm/dL (3.4-4.8); ALKALINE PHOSPHATASE 87 U/L (40-150); ANION GAP 11 mmol/L (7-16); AST,SGOT 29 U/L (5-34); BILIRUBIN,TOTAL 0.7 mg/dL (0.2-1.2); BLOOD UREA NITROGEN 23 mg/dL (8-26); CALCIUM 9.5 mg/dL (8.4-10.2); CARBON DIOXIDE 22 mmol/L (23-31); CHLORIDE 95 mmol/L (98-107); GLUCOSE 88 mg/dL (70-99); POTASSIUM 4.8 mmol/L (3.5-4.5); SODIUM 128 mmol/L (136-145)
[2021-08-25 11:32] LABS: ALCOHOL(ethanol),MEDICAL < 10 mg/dL (0-10); SALICYLATE < 5.0 mg/dL (15.0-30.0)
== END 2021-08-25 11:25 | disposition left against medical advice (07) ==
LOC: COL.ER 10:01
PROVIDERS: Nurse Practitioner
DX: F20.0 Paranoid schizophrenia (principal); F43.10 Post-traumatic stress disorder, unspecified; F17.210 Nicotine dependence, cigarettes, uncomplicated; Z79.899 Other long term (current) drug therapy

== ENCOUNTER 2021-09-15 22:22 | Emergency (ER) | payer MEDICARE, MEDICAID ==
[~2021-09-15] VITALS: Ht 175.3 cm; Wt 74.1 kg
[2021-09-15 22:50] VITALS: TEMP 98
[2021-09-16 00:49] VITALS: BP 133/76; PULSE 86
== END 2021-09-16 01:12 | disposition home or self-care (01) ==
LOC: COL.ER 22:22
DX: F20.0 Paranoid schizophrenia (principal); F43.10 Post-traumatic stress disorder, unspecified; Z79.899 Other long term (current) drug therapy

== ENCOUNTER 2021-09-19 23:24 | Emergency (ER) | payer MEDICARE, MEDICAID ==
[~2021-09-19] VITALS: Ht 175.3 cm; Wt 77.3 kg
[2021-09-19 23:40] VITALS: TEMP 97.2
[2021-09-19 23:59] LABS: COLLECTION METHOD CLEAN CATCH
[2021-09-20 00:12] LABS: MUCOUS Present (NOT PRESENT); SQUAMOUS EPITHELIAL 0-2 /hpf (0-10); URINE BACTERIA None Seen /hpf (NONE SEEN); URINE RBC 0-2 /hpf (0-2)
[2021-09-20 00:16] LABS: PH 7 (5-8); URINE APPEARANCE Clear (CLEAR/HAZY); URINE BILIRUBIN Negative (NEGATIVE); URINE BLOOD Negative (NEGATIVE); URINE COLOR Yellow (YELLOW); URINE GLUCOSE Negative (NEGATIVE); URINE KETONE Negative (NEGATIVE); URINE LEUKOCYTE ESTERASE Negative (NEGATIVE); URINE NITRATE Negative (NEGATIVE); URINE PROTEIN(semi-quant) Negative (NEGATIVE); URINE UROBILINOGEN Negative (NEGATIVE)
[2021-09-20 00:32] LABS: TRICYCLIC ANTIDEPRESS URINE POSITIVE
[2021-09-20 00:34] LABS: HEMOGLOBIN 10.5 g/dl (13.5-18.0); MEAN CELL VOLUME 90 fl (80.0-100.0); MEAN CORPUSCULAR HEMOGLOBIN 32 pg (27-31); MEAN CORPUSCULAR HGB CONC 36 g/dl (33.0-37.0); MEAN PLATELET VOLUME 8.2 fl (7.4-10.4); PLATELET COUNT 219 K/mm3 (130-400); RED BLOOD COUNT 3.24 M/mm3 (4.20-5.60); REDCELL DISTRIBUTION WIDTH-CV 12.4 % (11.5-14.5)
[2021-09-20 00:35] LABS: HEMATOCRIT 29.2 % (42.0-52.0)
[2021-09-20 00:42] LABS: ALANINE AMINOTRANSFERASE 18 U/L (0-55); ALBUMIN 3.6 gm/dL (3.4-4.8); ALKALINE PHOSPHATASE 114 U/L (40-150); ANION GAP 8 mmol/L (7-16); AST,SGOT 22 U/L (5-34); BILIRUBIN,TOTAL 0.3 mg/dL (0.2-1.2); BLOOD UREA NITROGEN 11 mg/dL (8-26); CALCIUM 8.6 mg/dL (8.4-10.2); CARBON DIOXIDE 24 mmol/L (23-31); CHLORIDE 94 mmol/L (98-107); CREATININE, serum 1.26 mg/dL (0.72-1.25); GLUCOSE 103 mg/dL (70-99); POTASSIUM 4.6 mmol/L (3.5-4.5); SODIUM 126 mmol/L (136-145); TOTAL PROTEIN 6.6 gm/dL (6.2-8.1)
[2021-09-20 00:44] LABS: ACETAMINOPHEN < 1.0 ug/mL (10-30); ALCOHOL(ethanol),MEDICAL < 10 mg/dL (0-10); SALICYLATE < 5.0 mg/dL (15.0-30.0)
[2021-09-20 01:25] LABS: BAND 0 % (0-10); NEUTROPHILS 70 % (42.0-75.2)
[2021-09-20 01:26] LABS: EOSINOPHIL 1 % (0-4); LYMPHOCYTE 11 % (20.0-51.0); PLATELET ESTIMATE NORMAL (NORMAL)
[2021-09-20 02:38] VITALS: BP 144/78; PULSE 76
== END 2021-09-20 02:39 | disposition home or self-care (01) ==
LOC: COL.ER 23:24
PROVIDERS: Emergency Medicine; Nurse Practitioner
DX: F20.0 Paranoid schizophrenia (principal); F43.10 Post-traumatic stress disorder, unspecified; F17.210 Nicotine dependence, cigarettes, uncomplicated; Z79.899 Other long term (current) drug therapy

== ENCOUNTER 2021-09-25 14:40 | Emergency (ER) | payer MEDICARE, MEDICAID ==
[~2021-09-25] VITALS: Ht 182.9 cm; Wt 81.8 kg
[2021-09-25 14:54] VITALS: TEMP 98
[2021-09-25 15:30] LABS: EOS # 0.2 K/mm3 (0.0-0.7); EOS % 5.1 % (0.0-4.0); GRAN # 2.2 K/mm3 (1.4-6.5); GRAN % 54.5 % (42.2-75.2); HEMOGLOBIN 10.1 g/dl (13.5-18.0); LYMPH # 0.8 K/mm3 (1.2-3.4); LYMPH % 19.4 % (20.0-51.0); MEAN CELL VOLUME 92 fl (80.0-100.0); MEAN CORPUSCULAR HEMOGLOBIN 32 pg (27-31); MEAN CORPUSCULAR HGB CONC 35 g/dl (33.0-37.0); MEAN PLATELET VOLUME 8.1 fl (7.4-10.4); MONO # 0.8 K/mm3 (0.1-0.6); MONO % 19.7 % (1.7-9.3); PLATELET COUNT 222 K/mm3 (130-400); RED BLOOD COUNT 3.13 M/mm3 (4.20-5.60)
[2021-09-25 15:31] LABS: HEMATOCRIT 28.7 % (42.0-52.0)
[2021-09-25 15:48] LABS: ACETAMINOPHEN < 1.0 ug/mL (10-30); ALANINE AMINOTRANSFERASE 15 U/L (0-55); ALBUMIN 3.3 gm/dL (3.4-4.8); ALCOHOL(ethanol),MEDICAL < 10 mg/dL (0-10); ALKALINE PHOSPHATASE 101 U/L (40-150); ANION GAP 8 mmol/L (7-16); AST,SGOT 18 U/L (5-34); BILIRUBIN,TOTAL 0.3 mg/dL (0.2-1.2); BLOOD UREA NITROGEN 12 mg/dL (8-26); CALCIUM 8.4 mg/dL (8.4-10.2); CARBON DIOXIDE 25 mmol/L (23-31); CHLORIDE 95 mmol/L (98-107); CREATININE, serum 1.29 mg/dL (0.72-1.25); GLUCOSE 100 mg/dL (70-99); POTASSIUM 4.3 mmol/L (3.5-4.5); SALICYLATE < 5.0 mg/dL (15.0-30.0); SODIUM 128 mmol/L (136-145); TOTAL PROTEIN 6.3 gm/dL (6.2-8.1)
[2021-09-25 17:40] LABS: TRICYCLIC ANTIDEPRESS URINE POSITIVE
[2021-09-25 19:52] VITALS: BP 130/82; PULSE 86
== END 2021-09-25 19:45 | disposition home or self-care (01) ==
LOC: COL.ER 14:40
PROVIDERS: Nurse Practitioner
DX: F20.0 Paranoid schizophrenia (principal); F43.10 Post-traumatic stress disorder, unspecified; F17.200 Nicotine dependence, unspecified, uncomplicated; Z79.899 Other long term (current) drug therapy

== ENCOUNTER 2021-10-29 10:16 | Emergency (ER) | payer MEDICARE, MEDICAID ==
[~2021-10-29] VITALS: Ht 182.9 cm; Wt 77.3 kg
[2021-10-29 10:41] VITALS: BP 135/81; PULSE 82; TEMP 97.8
[2021-10-29 11:12] LABS: COLLECTION METHOD CLEAN CATCH
[2021-10-29 11:17] LABS: PH 7 (5-8); SQUAMOUS EPITHELIAL None Seen /hpf (0-10); URINE APPEARANCE Clear (CLEAR/HAZY); URINE BACTERIA None Seen /hpf (NONE SEEN); URINE BILIRUBIN Negative (NEGATIVE); URINE BLOOD Negative (NEGATIVE); URINE COLOR Yellow (YELLOW); URINE GLUCOSE Negative (NEGATIVE); URINE KETONE Negative (NEGATIVE); URINE LEUKOCYTE ESTERASE Negative (NEGATIVE); URINE NITRATE Negative (NEGATIVE); URINE PROTEIN(semi-quant) Negative (NEGATIVE); URINE RBC 0-2 /hpf (0-2); URINE UROBILINOGEN Negative (NEGATIVE)
[2021-10-29 11:24] LABS: TRICYCLIC ANTIDEPRESS URINE POSITIVE
== END 2021-10-29 11:35 | disposition left against medical advice (07) ==
LOC: COL.ER 10:16
PROVIDERS: Emergency Medicine
DX: F20.0 Paranoid schizophrenia (principal); F17.200 Nicotine dependence, unspecified, uncomplicated

== ENCOUNTER 2021-11-26 08:03 | Inpatient (IN) | payer MEDICARE, MEDICAID ==
[~2021-11-26] VITALS: Ht 172.7 cm; Wt 71.6 kg
[2021-11-26] VITALS (311 sets, daily range): BP systolic 99–117; BP diastolic 64–78; PULSE 97–135; TEMP 97.2–97.8; O2SAT 89–100
[2021-11-26 08:27] LABS: HEMOGLOBIN 11.4 g/dl (13.5-18.0); MEAN CELL VOLUME 92 fl (80.0-100.0); MEAN CORPUSCULAR HEMOGLOBIN 32 pg (27-31); MEAN CORPUSCULAR HGB CONC 35 g/dl (33.0-37.0); MEAN PLATELET VOLUME 9.2 fl (7.4-10.4); PLATELET COUNT 133 K/mm3 (130-400); RED BLOOD COUNT 3.59 M/mm3 (4.20-5.60); REDCELL DISTRIBUTION WIDTH-CV 12.6 % (11.5-14.5)
[2021-11-26 08:31] LABS: HEMATOCRIT 32.9 % (42.0-52.0)
[2021-11-26 08:47] LABS: ALANINE AMINOTRANSFERASE 16 U/L (0-55); ALBUMIN 3.1 gm/dL (3.4-4.8); ALKALINE PHOSPHATASE 69 U/L (40-150); ANION GAP 11 mmol/L (7-16); AST,SGOT 25 U/L (5-34); BILIRUBIN,TOTAL 0.3 mg/dL (0.2-1.2); BLOOD UREA NITROGEN 22 mg/dL (8-26); CARBON DIOXIDE 22 mmol/L (23-31); CHLORIDE 93 mmol/L (98-107); CREATINE KINASE 238 U/L (30-200); CREATININE, serum 1.49 mg/dL (0.72-1.25); GLUCOSE 121 mg/dL (70-99); POTASSIUM 3.9 mmol/L (3.5-4.5); SODIUM 126 mmol/L (136-145)
[2021-11-26 08:49] LABS: BAND 12 % (0-10); LYMPHOCYTE 9 % (20.0-51.0); NEUTROPHILS 58 % (42.0-75.2); PLATELET ESTIMATE DECREASED (NORMAL)
[2021-11-26 08:51] LABS: ALCOHOL(ethanol),MEDICAL < 10 mg/dL (0-10)
[2021-11-26 08:55] LABS: TROPONIN-I < 0.010 ng/mL (0.00-0.033)
[2021-11-26 10:52] LABS: COLLECTION METHOD CLEAN CATCH
[2021-11-26 11:12] LABS: PH 6 (5-8); SQUAMOUS EPITHELIAL None Seen /hpf (0-10); URINE APPEARANCE Clear (CLEAR/HAZY); URINE BACTERIA None Seen /hpf (NONE SEEN); URINE BILIRUBIN Negative (NEGATIVE); URINE BLOOD 1+ (NEGATIVE); URINE COLOR Yellow (YELLOW); URINE GLUCOSE Negative (NEGATIVE); URINE KETONE Negative (NEGATIVE); URINE LEUKOCYTE ESTERASE Negative (NEGATIVE); URINE NITRATE Negative (NEGATIVE); URINE PROTEIN(semi-quant) Negative (NEGATIVE); URINE UROBILINOGEN Negative (NEGATIVE)
[2021-11-26 11:18] LABS: TRICYCLIC ANTIDEPRESS URINE POSITIVE
[2021-11-26 11:39] LABS: PARTIAL THROMBOPLASTIN TIME 32.8 SECONDS (26.0-37.0)
[2021-11-26 11:45] LABS: CALCIUM 7.7 mg/dL (8.4-10.2); CREATININE, serum 1.27 mg/dL (0.72-1.25); POTASSIUM 4.1 mmol/L (3.5-4.5)
--- NOTE | 2021-11-26 13:45 | NUR ---
UNABLE TO GET A MEDREC DONE, PT NOT ABLE TO ANSWER AND PCP IS NOT AVAILABLE UNTIL SATURDAY
--- NOTE | 2021-11-26 13:52 | NUR ---
REVIEVED REPORT FROM ED WILNER DOWLING. PT TO FLOOR VIA BED ON 2 LNC. SEE DRIP FLOW SHEET FOR RUNNING FLUIDS. VSS. PT APPEARS TO BE AGGRIVATED UPON ARIVAL, VERY AGGITATED. BED IN LOWEST POSITION, CALL LIGHT WITHIN REACH, BED ALARM ON
--- NOTE | 2021-11-26 18:43 | NUR ---
ATTEMPTED TO CALL CONSULT FOR CARDIOLOGY TWICE, NO ANSWER, RETURN PHONE NUMBER LEFT, NO CALL BACK WAS RECEIVED
--- NOTE | 2021-11-26 18:50 | NUR ---
PT is aggressive and yelling he would like to leave and go home. PT states he does not want to be in hospital and does not want to play God. Patient is alert to name, time, and situation. Hospitalist notified.
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
[2021-11-26] MEDS ORDERED: EUTHYROX25 MCG PO (20:00)
--- NOTE | 2021-11-26 20:14 | NUR ---
PAGED DR. IRVING TO NOTIFY OF CONSULT LEFT NUMBER VIA PAGING SYSTEM AWAITING RETURN CALL.
--- NOTE | 2021-11-26 20:15 | NUR ---
NOTED PSYCH CONSULT FOR PATIENT PER MAGGIE KUMAR OK TO NOTIFY DR. RAMOS IN AM DUE TO NOT BOX LIDDER SAKSHI
--- NOTE | 2021-11-26 23:00 | NUR ---
PATIENT REFUSING TO PLACE OXYGEN OR BLOOD PRESSURE MONITORS BACK ON AT THIS TIME, BECOMING AGGITATED EXITED ROOM TO ALLOW PATIENT TO CALM DOWN WILL ATTEMPT LATER
[2021-11-27] VITALS (371 sets, daily range): BP systolic 108–140; BP diastolic 50–92; PULSE 86–116; TEMP 96.5–97.8; O2SAT 82–100
--- NOTE | 2021-11-27 00:41 | NUR ---
PATIENT REMOVED BAJWA CATHETER SECUREMENT DEVICE AND REFUSED TO ALLOW REPLACEMENT
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
--- NOTE | 2021-11-27 01:20 | NUR ---
PATIENT REQUESTED AND GIVEN "SOMETHING TO EAT" PROVIDED WITH 2 OF EACH OF GRAPE JUICE, PRUNE JUICE (HIS REQUEST) CHOCOLATE PUDDING, 3 PACKAGES OF ROSALBA CRACKERS, 3 PEANUT BUTTERS AND 2 APPLE SAUCES, MEANWHILE PATIENT ALSO HAS CALLED THIS NURSE SEVERAL DEROGATORY NAMES, AT THIS TIME EXCUSED MYSELF FROM ROOM AND ALLOWED PATIENT TO CONSUME FOOD GIVEN TO HIM BY HIMSELF.
[2021-11-27 06:04] LABS: MEAN CELL VOLUME 93 fl (80.0-100.0); MEAN CORPUSCULAR HGB CONC 35 g/dl (33.0-37.0); MEAN PLATELET VOLUME 9.4 fl (7.4-10.4); PLATELET COUNT 143 K/mm3 (130-400); RED BLOOD COUNT 2.88 M/mm3 (4.20-5.60); REDCELL DISTRIBUTION WIDTH-CV 12.7 % (11.5-14.5)
[2021-11-27 06:24] LABS: ALBUMIN 2.7 gm/dL (3.4-4.8); BILIRUBIN,TOTAL 0.2 mg/dL (0.2-1.2); CALCIUM 7.5 mg/dL (8.4-10.2); CREATININE, serum 1.14 mg/dL (0.72-1.25); HEMATOCRIT 26.7 % (42.0-52.0); MEAN CORPUSCULAR HEMOGLOBIN 32 pg (27-31); POTASSIUM 4.1 mmol/L (3.5-4.5); TOTAL PROTEIN 5.3 gm/dL (6.2-8.1)
[2021-11-27 06:30] LABS: HEMOGLOBIN 9.2 g/dl (13.5-18.0)
[2021-11-27 06:37] LABS: BAND 1 % (0-10); LYMPHOCYTE 18 % (20.0-51.0); NEUTROPHILS 63 % (42.0-75.2); PLATELET ESTIMATE NORMAL (NORMAL)
--- NOTE | 2021-11-27 08:35 | NUR ---
REVEICED BEDSIDE REPORT FROM BRIAN DARBY. ALL LINES RUNNING APPROPRIATELY (SEE DRIP FLOWSHEET). BAJWA IN PLACE WITH OUTPUT (SEE OUTPUT FLOOW SHEET). PT NOT TOLERATING TELE LINES/BP CUFF/O2 SENSOR. PT APPEARS AGGRIVATED. ONE SET OF VITALS ACHIEVED WITH VITALS WDL
--- NOTE | 2021-11-27 08:42 | NUR ---
PT CALLED NURSE INTO ROOM. PT STATED HE NEEDED HIS BAJWA OUT BECAUSE "I'M BLEEDING" NO BLOOD VISUALIZED IN THE BAJWA OR AROUND THE SKIN. THIS RN REPORTED THAT OBSERVATION TO PT. PT TOLD NURSE "GO F YOURSELF B". PT CONTINUES TO BE AGGRESSIVE AND VERBALLY ABUSIVE.
--- NOTE | 2021-11-27 09:00 | NUR ---
ATTEMPTED TO CALL PTS SISTER, NO ANSWER, VOICE MAIL LEFT
--- NOTE | 2021-11-27 10:01 | NUR ---
PT refuses to leave monitor, SPO2, and BP leads on. PT is verbally abusive and aggressive.
--- NOTE | 2021-11-27 10:15 | NUR ---
THIS NURSE IS SITTING TELE, I HAVE RECIEVED MULITPLE CALLS FROM ANGELICA, SISTER OF PT. ANGELICA IS TRYING TO ASK ME QUESTIONS THAT I CANNOT ANSWER I AM NOT IN THE PT DIRECT CARE TODAY. ANGELICA SEEMS TO BE VERY UPSET OVER THE PHONE THAT SHE IS NOT RECIEVING UPDATES. NURSE ROSIE HAS MADE MULTIPLE ATTEMPTS TO CALL THE PT, BUT ANGELICA DOES NOT ANSWER STATING " MY PHONE IS ON DO NOT DISTURB AND CALLS WILL NOT GO THROUGH". THIS NURSE HAS TRANSFERED CALLS TO POLLY' RN BUT NURSE HAS BEEN BUSY AND IN OTHER PTS ROOMS.
--- NOTE | 2021-11-27 10:53 | NUR ---
press worker helper met with patient to complete intake. Patient is agitated and has been verbally abusive to staff. Patient is able to tell me that he lives at home alone in [place] and is independent withhis ADL's. He does not utilize any DME to assist with mibility and has no home oxygen needs. Patient asks that i call his sister Ana ([phone]). Patient's RN attempts to contact the patient's sister and got a VMS. SW consulted supervisor train operations to assist with discharge disposition. Patient is currently in [facility] and is refusing treatment and kicking both the php wordpress developer and hospitalist out of his room. ILENE Felder contacted the CSU who states that the are willing to screen this patient due to his ability to make informed decisions. This SW contacted APS worker for [facility] who states they do not currentlyhave an open case for this patient. APS was last involved in September. This SW will open a new case due to the patient wanting to leave [facility] and it is unknown if he is able to make his own decisions.
--- NOTE | 2021-11-27 12:20 | NUR ---
PT REFUSING ASUCLTATION OF HEART/LUNGS. PT REFUSING NURSE TO VIUALIZE SKIN. PT IS ALLOWING NURSE TO FEEL PULSES, GET A BLOOD PRESSURE AND OXYGEN SATURATION. PT REFUSING PERICARE. PT REFUSING TELE. PT REFUSING FURTHER INTERACTION AT THIS TIME.
--- NOTE | 2021-11-27 15:44 | NUR ---
THIS NURSE ATTEMPTED TO GIVE LOVENOX. PT STATED "F YOU. GET THE F OUT OF HERE". MEDICATION NOT GIVEN AT THIS TIME
--- NOTE | 2021-11-27 16:00 | NUR ---
PT REFUSING VITALS TO BE TAKEN AT THIS TIME.
--- NOTE | 2021-11-27 16:40 | NUR ---
ILENE received phone call from patients sister Ana. She is upset with the treatment the patient has been getting through [facility] and feels like they are not meeting his mental health needs. Ana states that she has been trying to get the patient to move to [place] to stay with her so she can monitor him and manage his medications but she is not having any luck with getting him to agree to this plan. Ana is frustrated because out of the patients 6 siblings, she is the only one that will have anything to do with him. Ana states that she has been trying to get the patient the help he needs but is frustrated with how the mental health system. Sent Ana our list of mental health resources to assist with finding a more stable mental health provider post discharge.
--- NOTE | 2021-11-27 18:05 | NUR ---
PT REFUSING ALL ASSESSMENTS AT THIS TIME.
--- NOTE | 2021-11-27 19:57 | NUR ---
ENTERED PATIENT ROOM, PATIENT CONFRONTATIONAL AND AGGRESSIVE WITH BEHAVIOR BUT DID ALLOW THIS NURSE LIMITED ASSESSMENT, ASKED PATIENT IF HE WAS GOING TO TAKE MEDICATIONS TONIGHT, PATIENT LISTED MEDICATIONS HE TAKES INCLUDING 100 MG OF THORAZINE WHICH IS UNABLE TO BE VERIFIED BY PREVIOUS MED LIST AVAILABLE DISCUSSED WITH PRACHI PEREYRA AND WILL VERIFY WITH PATIENTS PHARMACY/DR LINDSAY. OTHER MEDICATIONS THAT PATIENT HAS STATED VERIFIED AND UPDATED IN MED LIST AT THIS TIME.
--- NOTE | 2021-11-27 20:05 | NUR ---
PATIENT ALLOWED LIMITED ASSESSMENT REFUSES TO ALLOW CONTINUED MONITORING WITH TELE LEADS, BP OR PULSE OX REFUSES CONTINUOUS IV FLUIDS, DID STATE THAT HE WOULD TAKE PO MEDICATIONS THIS EVENING
--- NOTE | 2021-11-27 23:42 | NUR ---
Patient has continued with aggressive and aggitated behaviors this shift, cals for nurse to come to room and then when requests are not instantly met begins to call names, this nurse has explained to patient that we are required to place ppe on before entering his room, patient become beligerent and states that he does not have anything contagious explained that he did test positive for the flu, as well as having history of MRSA. Patient also requested to "go outside for fresh air" explained that was not permitted and again become angry and uttered foul language at this nurse. Patient then ask for this nurse to assist him with turning his tv on, getting him warm blankets and getting him some food, all of which were provided and all of which end with patient tell this nurse to get out of his room you dumb "B..t.h!"
--- NOTE | 2021-11-27 23:56 | NUR ---
patient stated he was hungry provided with 2 puddings 2 applesauce 240 ml of oj, a sandwich and a cookie.
--- NOTE | 2021-11-28 02:07 | NUR ---
Patient refusing assessment at this time refusing to allow monitoring equipment to be placed on at this time
[2021-11-28 04:00] VITALS: BP 126/89; TEMP 97.7
[2021-11-28 04:05] VITALS: O2SAT 100
[2021-11-28 04:06] VITALS: O2SAT 99
[2021-11-28 04:07] VITALS: O2SAT 100
--- NOTE | 2021-11-28 04:18 | NUR ---
PATIENT REMOVED SECUREMENT DEVICE FOR BAJWA CATHETER REFUSED FOR THIS NURSE TO REPLACE IT AT THIS TIME STATES "IT IS FINE" BUT THEN COMPLAINS THAT IT IS PULLING AT MY "HERI AND HURTING" ATTEMPTED TO EXPLAIN THAT THE SECURING DEVICE WOULD PREVENT THAT HOWEVER PATIENT REFUSED TO BELIEVE OR ACCEPT WHAT THIS NURSE WAS SAYING
[2021-11-28 05:15] LABS: MEAN CELL VOLUME 95 fl (80.0-100.0); MEAN CORPUSCULAR HGB CONC 34 g/dl (33.0-37.0); MEAN PLATELET VOLUME 9.4 fl (7.4-10.4); PLATELET COUNT 153 K/mm3 (130-400); REDCELL DISTRIBUTION WIDTH-CV 12.9 % (11.5-14.5)
[2021-11-28 05:17] LABS: HEMATOCRIT 27.6 % (42.0-52.0); HEMOGLOBIN 9.4 g/dl (13.5-18.0); MEAN CORPUSCULAR HEMOGLOBIN 32 pg (27-31)
[2021-11-28 05:27] LABS: CALCIUM 7.7 mg/dL (8.4-10.2); CREATININE, serum 0.97 mg/dL (0.72-1.25)
[2021-11-28 06:23] LABS: BASOPHIL 2 % (0-2); HYPOCHROMIA 1+; LYMPHOCYTE 25 % (20.0-51.0); NEUTROPHILS 51 % (42.0-75.2); SCHISTOCYTES 1+
--- NOTE | 2021-11-28 07:00 | NUR ---
REPORT RECEIVED FROM WILNER TORRES. BRIAN REPORTS THAT OVERNIGHT PT ONLY ALLOWED LIMITED PHYSICAL ASSESSMENT AND INTERMITTENT MONITORING OF VITALS. NS RUNNING AT 75ML/HR THROUGH RIGHT IJ. FC TO DEPENDENT DRAINAGE. PT APPEARS TO BE SLEEPING AT THIS TIME.
--- NOTE | 2021-11-28 08:43 | NUR ---
Pt was willing to take tamulosin and colace this AM. He did refuse the tamiflu and states that he does not have influenza, therefore he does not need the tamiflu. Pt refusing to allow this nurse to assess him and take vitals at this time. Will attempt to assess again once pt is finished with breakfast.
--- NOTE | 2021-11-28 09:01 | NUR ---
Pt called this nurse back into room to remove breakfast tray. Pt allowed this nurse to complete physical assessment, but did not however allow vitals to be taken or telemetry to be obtained.
--- NOTE | 2021-11-28 09:45 | NUR ---
Hospitalist attempted to enter room to see pt. Pt yelling profanities at hospitalist and stating "You're not my fucking doctor. I don't want to see no foreign fucking doctor." Recommended to hospitalist to not see pt due to his agitated and aggressive behavior at this time. Pt standing at door. Yelling and screaming profanities at staff. Security called at this time.
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
[2021-11-28] MEDS ORDERED: VITAMIN D31000 I1 PO (11:30)
[2021-11-28] MEDS ORDERED: NAPROSYN 2250 MG/TAB PO (11:31)
--- NOTE | 2021-11-28 11:32 | NUR ---
Fax received from [facility] stating that [facility] will not accept pt for inpatient treatment at this time due to his current medical status. This nurse called [facility] and spoke with domestic cleaner Irma. Irma states that at this time pt has been denied being admitted from 2 facilities and they will continue to try other facilities. She will call this nurse with any updates.
--- NOTE | 2021-11-28 11:38 | NUR ---
Patient is in jeopardy of losing his section 8 housing on December 03. This SW left a message for the patients case folder- Sarita at [place] to see where she is currently at with securing his apartment.
[2021-11-28 12:00] VITALS: BP 117/97; PULSE 99
--- NOTE | 2021-11-28 12:00 | NUR ---
Assessment limited due to pt being non cooperative and refusing.
--- NOTE | 2021-11-28 13:55 | NUR ---
This nurse called [facility] to update blockman on pt's status. Control Supervisor Irma requests that progress notes and pt's recent VS be faxed to them. 11/28 cardiology and hospitalist notes faxed to [facility] along with recent VS. Fax confirmation received.
--- NOTE | 2021-11-28 15:05 | NUR ---
This nurse called [facility] to confirm that they had received fax with pt's updated progress notes. [facility] construction secretary states that they have received the fax and the energy conservation technician will work on reveiwing the notes.
--- NOTE | 2021-11-28 15:45 | NUR ---
Pt walked out of room and states "I'm leaving this fucking place and don't try to stop me." This nurse called security and asked them to assist. While waiting for security to arrive, Pt walked through halls, went up the stairs to pain clinic on 3rd floor and stated to staff. "Tell me how the fuck to get out of here and don't fucking lie about it either." Security arrived to 3rd floor. This nurse and security followed pt to ER. Attempted to talk pt down but pt persisted and attempted to exit through ER. Due to being here on involuntary hold, security picked up pt and carried him back to room. Pt now pacing around room yelling profanities at staff.
--- NOTE | 2021-11-28 16:05 | NUR ---
This nurse calls hospitalist and asks if it is okay to remove RIJ central line due to pt being high risk for elopement. Hospitalist gives verbal order to remove IJ. Hospitalist also states to change pt's status from IMCU to ICU. TORB.
--- NOTE | 2021-11-28 16:15 | NUR ---
This nurse attempted to contact [facility] to request that pt be screened again. [facility] states that central sterile supply technician Irma is busy at this time with another screening and will call back when available.
--- NOTE | 2021-11-28 17:06 | NUR ---
ASSESSMENT ONCE AGAIN LIMITED DUE TO PT REFUSING.
--- NOTE | 2021-11-28 22:17 | NUR ---
PT REFUSING TO LET NURSE DO A FULL SHIFT ASSESSMENT. CHARTING REFLECTS WHAT COULD BE OBSERVED PT WOULDNT LET NURSE TOUCH HIM TO DO OTHER ASSESSMENTS. PT ALSO REFUSING VITAL SIGNS AT THIS TIME
[2021-11-29] VITALS (20 sets, daily range): BP systolic 142; BP diastolic 98; PULSE 93; TEMP 98; O2SAT 95–99
--- NOTE | 2021-11-29 00:21 | NUR ---
PT STILL REFUSING FULL ASSESSMENT. RN ONLY ABLE TO ASSESS PT VIA OBSERVATION. PT ALSO STILL REFUSING VITAL SIGNS
--- NOTE | 2021-11-29 04:15 | NUR ---
PT STILL REFUSING ALL MONITORING. PT ALSO REFUSING TO LET RN DO ASSESSMENT AND VITAL SIGNS
[2021-11-29 05:50] LABS: BASO % 0.7 % (0.0-2.0); EOS # 0.1 K/mm3 (0.0-0.7); EOS % 3.5 % (0.0-4.0); GRAN # 1.2 K/mm3 (1.4-6.5); GRAN % 41.8 % (42.2-75.2); HEMOGLOBIN 10.5 g/dl (13.5-18.0); LYMPH % 34.7 % (20.0-51.0); MEAN CELL VOLUME 94 fl (80.0-100.0); MEAN CORPUSCULAR HEMOGLOBIN 32 pg (27-31); MEAN CORPUSCULAR HGB CONC 34 g/dl (33.0-37.0); MONO # 0.5 K/mm3 (0.1-0.6); MONO % 18.9 % (1.7-9.3); PLATELET COUNT 178 K/mm3 (130-400); RED BLOOD COUNT 3.29 M/mm3 (4.20-5.60); REDCELL DISTRIBUTION WIDTH-CV 12.7 % (11.5-14.5)
[2021-11-29 05:52] LABS: HEMATOCRIT 30.8 % (42.0-52.0)
[2021-11-29 06:02] LABS: CALCIUM 8.2 mg/dL (8.4-10.2); CREATININE, serum 0.98 mg/dL (0.72-1.25); POTASSIUM 4.3 mmol/L (3.5-4.5)
--- NOTE | 2021-11-29 07:45 | NUR ---
Resumed care of PT. Mr. Keyes is sitting outside his room at the end of the bhandari. PT states " the room is too small". He knows to stay on this side of the ICU. He has a meeting scheduled at 0930 with a umbrella supervisor about his involuntary hold status.
--- NOTE | 2021-11-29 08:00 | NUR ---
PT WILL NOT ALLOW THIS NURSE TO TAKE VITALS.
--- NOTE | 2021-11-29 09:30 | NUR ---
PT had a meeting with the court via [employer]. PT had an appointed dental detail representative. Mr. Keyes stated that " They are taking my pills" and that he wants to state his case to the zoology professor of why he should not have to stay in the hospital. Charlene Perry, with [facility] was apart of the meeting. See Tramaine notes. When Mr. Keyes was able to speak he stated" he needs medicine","more freedom"," To go across the street"," locked up like a criminal"," give me a couple days". See court documents. This nurse was notified that Mr. Keyes is still under involuntary hold by the court, that he needs to be medically cleared through [facility], and await placement at [facility]. This nurse will call [facility] at [phone] to set up for a doctor to doctor phone call.
--- NOTE | 2021-11-29 11:00 | NUR ---
This nurse called [facility] triage at [phone] and spoke to Ag, the director of triage. I stated that per court orders, pt is awaiting placement in facility once PT is medically cleared from [facility]. I asked if I could get a number to a doctor at the facility so our doctor can call about this pt, as requested by social work. Ag stated "I wont let your doctor bully my doctor in taking this PT". I stated that as a get more information I will let him know.
--- NOTE | 2021-11-29 11:51 | NUR ---
PT IS LAYING IN BED, ALLOWED ME TO TAKE VITALS.
--- NOTE | 2021-11-29 15:00 | NUR ---
Mr. Keyes wanted to take a walk around the gardens, after about 15 minutes outside, we went to return to the ICU and Mr. Keyes said that he felt very tired and had to sit down. after awhile he was able to walk to his ICU room where vitals and tele were taken. VSS. PT stated that the new medication made his heart rate too low.
--- NOTE | 2021-11-29 15:35 | NUR ---
market garden worker spoke with Irma at the Crisis Stabilization Unit and confirmed that per court/[employer] Electrical Systems Designer, patient is to be held for involuntary placement at [facility]. Irma states that after the [employer] Electrical Systems Designer has signed the legal documents they will be sent to CSU and then faxed to our ICU. Nursing staff will send clinical updates to CSU.
--- NOTE | 2021-11-29 16:20 | NUR ---
Called Tramaine for update, no update at this time.
--- NOTE | 2021-11-29 16:40 | NUR ---
Called Tramaine for update- therapist Irma stated they have not recieved anything from the courts as of this time. When they recieve documents, they will fax them to [facility] AND to [facility].
--- NOTE | 2021-11-29 17:44 | NUR ---
Mr. Keyes is in a better mood today, often sleepy. He has been pleasant with few mood swings.
--- NOTE | 2021-11-29 20:55 | NUR ---
PATIENT DOES NOT LIKE TO BE TOUCHED/ VITALS TAKEN UPON PATIENT REQUEST/ SITS AT END OF SCHULTZ/ EASILY AGITATED/NO IV ACESS/ NEGATIVE EYE CONTACT/ SUCCEDING WITH PATIENT SO FAR/
--- NOTE | 2021-11-30 00:11 | NUR ---
PATIENT IS UP IN HALLWAY IN WHEEL CHAIR/ ASLEEP AWAKENS EASILY AGITATED DOES NOT WANT TO BE TOUCH, REFUSES TO COOPERATE
--- NOTE | 2021-11-30 04:11 | NUR ---
PATIENT REFUSES TO BE TOUCH WANTS TO BE KEFT ALONE CURRENTLY IN HIS ROOM ON THE STRETCHER
[2021-11-30 06:02] VITALS: BP 138/100; PULSE 111; TEMP 97.6
[2021-11-30 08:00] VITALS: BP 129/98; PULSE 97; TEMP 98
[2021-11-30 09:14] VITALS: O2SAT 97; O2SAT 98
--- NOTE | 2021-11-30 15:51 | NUR ---
PATIENT UP IN SCHULTZ; IS COOPERATIVE TO AN EXTENT AND WILL ALLOW CERTAIN NURSING INTERVENTIONS DEPENDING UPON WHETHER OR NOT HE FEELS LIKE IT. PATIENT IS ALLOWED TO BE UP IN THE SCHULTZ AND RESTS IN HIS ROOM WHEN HE GETS TIRED.
--- NOTE | 2021-11-30 18:42 | NUR ---
Patient refusing all injections as well as vital sign checks. Was agreeable this morning but as the day went on, patient became increasingly agitated and upset. He says we are "holding him hostage" and that we can't do that and he wants to leave. Called Tramaine CSU to try and establish where we are in the transfer process; was told therapists involved were busy and that they would call back. Call was placed to CSU at approx 1630 and at shift change there had been no response.
--- NOTE | 2021-11-30 21:35 | NUR ---
UPON CHANGE OF SHIFT, PATIENT UNCOOPERATIVE. PATIENT WAS WILLING TO TAKE PM MEDICATIONS. HOWEVER, HE REFUSED TO ALLOW RN TO ASSESS HIM OR OBTAIN VITAL SIGNS. APPEARS TO BE IN NO ACUTE DISTRESS. OUT OF BED AND AMBULATING TO THE BATHROOM INDEPENDENTLY IN ROOM. EDUCATION PROVIDED ON IMPORTANCE OF COMPLIANCE WHILE IN THE HOSPITAL. PATIENT BECAME AGITATED AND DEMANDED RN LEAVE THE ROOM. WILL CONTINUE TO MONITOR.
--- NOTE | 2021-12-01 00:04 | NUR ---
PATIENT RESTING IN BED. DOES NOT APPEAR TO BE IN ANY ACUTE DISTRESS. CONTINUES TO REFUSE ASSESSMENT AND VITAL SIGNS.
--- NOTE | 2021-12-01 04:07 | NUR ---
RN ATTEMTED ONCE AGAIN TO ASSESS PATIENT AND OBTAIN VITAL SIGNS. PATIENT REFUSED. WILL CONTINUE TO MONITOR
[2021-12-01 05:59] LABS: BASO % 0.7 % (0.0-2.0); EOS # 0.1 K/mm3 (0.0-0.7); EOS % 3.2 % (0.0-4.0); GRAN # 2.3 K/mm3 (1.4-6.5); LYMPH % 23.7 % (20.0-51.0); MEAN CELL VOLUME 94 fl (80.0-100.0); MEAN CORPUSCULAR HEMOGLOBIN 31 pg (27-31); MEAN CORPUSCULAR HGB CONC 33 g/dl (33.0-37.0); MEAN PLATELET VOLUME 9.1 fl (7.4-10.4); MONO # 0.8 K/mm3 (0.1-0.6); MONO % 18.9 % (1.7-9.3); PLATELET COUNT 229 K/mm3 (130-400); RED BLOOD COUNT 3.52 M/mm3 (4.20-5.60); REDCELL DISTRIBUTION WIDTH-CV 12.7 % (11.5-14.5)
[2021-12-01 06:01] LABS: CALCIUM 8.4 mg/dL (8.4-10.2); CREATININE, serum 1.21 mg/dL (0.72-1.25); POTASSIUM 4.7 mmol/L (3.5-4.5)
[2021-12-01 06:02] LABS: HEMATOCRIT 32.9 % (42.0-52.0)
--- NOTE | 2021-12-01 08:38 | NUR ---
PATIENT REFUSING ALL ASSESSMENTS, ALL VITAL SIGN CHECKS, AND ALL MEDICATION THIS MORNING.
--- NOTE | 2021-12-01 08:59 | NUR ---
Offered morning medications for the 2nd attempt. Wali would not allow me to enter his room. Complained that he is never in bed this long. Why are we making him stay in bed. I offered to take him on a walk about to the garden. his immediate response was "fuck off! go away!" Reminded him to let us know if he needed/wanted anything and left him alone at this time. pt remains in bed, laying with his face turned away from the door so we cannot see his face.
--- NOTE | 2021-12-01 10:17 | NUR ---
hops farmworker spoke with [facility] court and secured signed court documents which are now on the medical record. Worker spoke with attorny, Nash from [facility] and confirmed that he will contact [facility] to attempt to secure when patient will be discharged to their facility. Patient continues to be court ordered, involuntary placement at [facility]. Worker collaborated with ICU nurses regarding the above information.
--- NOTE | 2021-12-01 13:24 | NUR ---
PATIENT STILL REFUSING TO LET RN CHECK VITAL SIGNS.
--- NOTE | 2021-12-01 16:37 | NUR ---
Clair with APS arrives to the unit to meet with the patient.
--- NOTE | 2021-12-01 23:24 | NUR ---
ASSESSMENT ATTEMPTED. PATIENT REFUSED TO ALLOW ME TO ASSESS HIM. HE ALSO REFUSED VITAL SIGNS. PATIENT DID TAKE HIS MEDS HOWEVER, HE THEN BECAME VERBALLY AGGRESIVE AND DEMANDED I LEAVE HIS ROOM. WILL CONTINUE TO MONITOR PATIENT.
--- NOTE | 2021-12-02 00:56 | NUR ---
Assumed care of patient at 2330. Patient resting in bed. Refusing cares. Request staff leave room.
--- NOTE | 2021-12-02 05:25 | NUR ---
Patient refused morning labs. States he is no longer letting the staff experiment on him. Very agitated and aggressive with staff.
--- NOTE | 2021-12-02 05:36 | NUR ---
Patient in [facility], yelling for tylenol. Refused to let staff open medication or provide patient water.
--- NOTE | 2021-12-02 07:35 | NUR ---
Report given to WILNER Lema
--- NOTE | 2021-12-02 07:43 | NUR ---
RECEIVED BEDSIDE SHIFT REPORT FROM WILNER SCHWARTZ. PATIENT IS KNOWN TO BE COMBATIVE AND VERBALLY ABUSIVE. RESTING IN BED CURRENTLY. NO KNOWN VITALS OR LAB VALUES FOR THIS MORNING PATIENT REFUSED. WILL ATTEMPT TO ASSESS.
[2021-12-02 08:00] VITALS: BP 98/70; PULSE 87; TEMP 98.1
--- NOTE | 2021-12-02 08:08 | NUR ---
Call placed to [facility] and spoke with Nya, Triage Nurse. Per Nya with patient has not been medically cleared and is currently on the list but does not have a place in line due to medical clearance. Nya requested the last few days worth of progress notes. so she can sent to the team for medical clearance. Progress notes printed and faxed to [phone]
--- NOTE | 2021-12-02 08:12 | NUR ---
PATIENT IN HALLWAY WHEELCHAIR HAVING BREAKFAST. ATTEMPTED TO INTRODUCE MYSELF HIS NURSE. PATIENT IMMEDIATELY USING PROFANITY AND YELLING ABOUT HOME MEDICATIONS. EXPLAINED TO PATIENT THAT THIS NURSE WILL DISCUSS IT WITH THE DOCTOR. PATIENT REFUSED AN ASSESSMENT AND ALL MORNING MEDICATIONS.
--- NOTE | 2021-12-02 08:38 | NUR ---
Star, Stamp Redemption Clerk, informs has faxed requested documentation to [facility]. No further identified needs at this time; Garage Door Installer to continue to follow. *Discharge plan: OSH placement for acute inpatient psychiatric care*
--- NOTE | 2021-12-02 10:00 | NUR ---
DR. STRICKLAND AT BEDSIDE. SPOKE TO REGARDING PATIENT'S CONCERNS ABOUT HOME MEDICATIONS. WILL BE RESUMING HOME MEDS IF ABLE.
--- NOTE | 2021-12-02 10:30 | NUR ---
RESUMED PATIENT'S MEDS WITH HELP OF PHARMACY. PATIENT STILL NOT COMPLETELY HAPPY WITH ONE MEDICATION NOT BEING RESUMED BECAUSE HOSPITAL DOES NOT CARRY. GAVE PATIENT THE OPTION OF HAVING MEDICATION BROUGHT TO HOSPITAL VIA FAMILY. NOT AGREEABLE. PATIENT TOLD THIS NURSE TO "GO TO HELL". AGREEABLE TO ALLOWING ME TO TAKE VITAL SIGNS. PATIENT IS STABLE
--- NOTE | 2021-12-03 05:22 | NUR ---
ASSUMED CARE OF PATIENT AFTER RECEIVING BEDSIDE REPORT. PATIENT REFUSED ALL CARES THROUGHOUT SHIFT. PATIENT DID TAKE 2100 MEDICATIONS BUT REFUSED MORNING MEDICATIONS. PATIENT WAS VERBALLY ABUSIVE TO STAFF DURING SHIFT. THIS RN ATTEMPTED TO REDIRECT THE PATIENT BUT IT MADE THE PATIENT MORE AGITATED. ATTEMPTED TO SET BOUNDARIES, PATIENT BECAME UPSET. STIMULATION REDUCED, NO INTERACTION WITH PATIENT UNLESS INITIATED BY HIM. PATIENT REMINDED SEVERAL TIMES OF APPROPRIATE BEHAVIOR WITH LITTLE IMPROVEMENT. BEDSIDE REPORT TO BE GIVEN TO ONCOMING SHIFT.
--- NOTE | 2021-12-03 08:00 | NUR ---
PT IS SITTIN AT THE END OF THE [facility] NEAR ICU 07-08. PT SEEMS MORE AGGITATED TODAY THAT PREVIOUS EXPERIENCE BY THIS NURSE. AT THIS TIME, PT REFUSES THIS NURSE TO DO A FULL ASSESSMENT, OR GET VITAL SIGNS DUE TO INCREASE AGGITATION. THIS NURSE ASSESSED WHAT COULD BE WITHOUT PHYSICAL TOUCH.
--- NOTE | 2021-12-03 11:00 | NUR ---
has been requesting to go outside. I stated that Im getting a new PT and that I cannot leave the unit at this time. He got aggitated and started walking towards express unit to leave. I stepped infront of Mr. Keyes to get him to stop stating " You cannot leave the unit without supervision" and at that time pushed me to get past me, pushing me into the express/ ICU door. I then grabbed Mr. Keyes by the back of his shirt, turned him around, and escorted him back to ICU 07. Mr. Keyes was then very compliant with the walk back to the room. Security was then called, to monitor because he is trying to leave the unit. Mr. Keyes was again told that he is in the hospital under a court order to stay in the ICU until he recieves placement at OSH.
--- NOTE | 2021-12-03 11:50 | NUR ---
Spoke with Nya at [facility]. She states the weekend call physican was not comfortable medically clearing this patient and it would have to go to the primary doctor tomorrow at the hospital. Will attempt return call tomorrow to check status.
--- NOTE | 2021-12-03 16:55 | NUR ---
On the phone with Trenton Mitchell sister, states Wali does not get along with his brother, JUAN SILVA, and that Wali will get very upset. Tele desk notified to not let JUAN into the ICU
--- NOTE | 2021-12-03 19:05 | NUR ---
Received report from WILNER Gonzalez.
--- NOTE | 2021-12-03 19:45 | NUR ---
Patient resting quietly in bed. I introduced myself to patient as I updated his white board. Patient immediately responded with, "Get out you stupid bitch." No further communication attempted with patient at this time. I removed myself from patient's room and shut his door. Window blinds remain open for observation of patient.
--- NOTE | 2021-12-03 21:57 | NUR ---
Patient calls requesting evening medications. Scheduled medications provided. Patient refuses his requip, stating he takes it on an as-needed basis for restless leg. Patient asked if this RN could perform an assessment and take a set of vitals. Patient refuses.
--- NOTE | 2021-12-03 22:00 | NUR ---
Patient refusing total shift assessment. Patient assessed only through observation, no physical contact performed. Patient is alert and oriented to self, location, and situation. Skin appears normal in color. Patient is up independently in room, gait is steady. Patient's respirations appear normal and unlabored. He is using urinal or bedside commode for bathroom needs; 1000mL of clear, yellow urine dumped from bedside commode. Patient continues to refuse use of telemetry or obtainment of vital signs.
--- NOTE | 2021-12-03 22:23 | NUR ---
Patient now calls at [phone] specifically requesting Requip for symptoms of restless leg. Medication administered, see EMAR.
--- NOTE | 2021-12-04 00:18 | NUR ---
PATIENT CONTINUES TO REFUSE ASSESSMENT AND OBTAINMENT OF VITALS.
--- NOTE | 2021-12-04 07:00 | NUR ---
PT SITTING IN THE [facility]. PT MUMBLING TO HIMSELF. INTRODUCED MYSELF TO PT AND HE STATES "STOP TRYING TO BUTTER ME UP, IM NOT DOING SHIT FOR YOU". PT GIVEN COFFEE PER HIS REQUEST. 0750- PT EATING BREAKFAST. ATTEMPTED TO GIVE PT AM MEDS. PT INSISTING HE ONLY TAKES PSYCH MEDS AND WILL NOT TAKE ANY OTHER CRAP.
--- NOTE | 2021-12-04 08:06 | NUR ---
PT REFUSING ASSESSMENT AND VS.
[2021-12-04] MEDS ORDERED: LOPRESSOR 225 MG/TAB PO (09:59)
[2021-12-04] MEDS ORDERED: ASPIRIN 81M81 MG/TA2 PO (10:00)
--- NOTE | 2021-12-04 10:08 | NUR ---
[facility] attorney's office emailed a court document on 12/02/2021, that was not seen until this date, stating that patient's care and treatment case was terminated and that patient can be released from custody where he has been at this hospital. Worker met with ICU team and Dr Santiago to advise of this matter. Patient will be discharged home today.
--- NOTE | 2021-12-04 10:25 | NUR ---
Court documents received that the patient is able to discharge home today. Phone call made to the patients [place] director of casework services Sarita Gutiérrez to notify of discharge. [employer] contacted and states that they can pick the patient up at 1100 am to transport this patient home. Patients transportation voucher provided to the patients RN.
--- NOTE | 2021-12-04 10:35 | NUR ---
PATIENT EDUCATED ON FOLLOWUP APPOINTMENTS AND NEW MEDICATIONS. PATIENT STATES HE IS NOT TAKING THEM.
--- NOTE | 2021-12-04 10:42 | NUR ---
PATIENT DISCHARGED FROM HOSPITAL AT 1042. PT TOOK ALL DISCHARGE PAPERWORK AND REFUSED TO SIGN ANY.
== END 2021-12-04 10:42 | disposition home or self-care (01) | DRG 308 ==
LOC: COL.ER 08:03 → ICU 11:10
PROVIDERS: Emergency Medicine; Student in an Organized Health Care Education/Training Program; ADMIT Family Medicine
PROC: 05HM33Z Insertion of Infusion Device into Right Internal Jugular Vein, Percutaneous Approach (ICD-10-PCS; principal; 2021-11-26)
DX: I48.91 Unspecified atrial fibrillation (principal); J10.00 Influenza due to other identified influenza virus with unspecified type of pneumonia; E87.1 Hypo-osmolality and hyponatremia; F20.0 Paranoid schizophrenia; N17.9 Acute kidney failure, unspecified; N18.30 Chronic kidney disease, stage 3 unspecified; F43.10 Post-traumatic stress disorder, unspecified; E78.5 Hyperlipidemia, unspecified; I95.9 Hypotension, unspecified; E03.9 Hypothyroidism, unspecified; N40.0 Benign prostatic hyperplasia without lower urinary tract symptoms; F41.9 Anxiety disorder, unspecified; K59.00 Constipation, unspecified; E86.1 Hypovolemia; J10.2 Influenza due to other identified influenza virus with gastrointestinal manifestations; E87.8 Other disorders of electrolyte and fluid balance, not elsewhere classified; G25.81 Restless legs syndrome; Z20.822 Contact with and (suspected) exposure to COVID-19; Z23 Encounter for immunization
CPT/HCPCS: 99223-AI; 99231-AI; 99232-AI; 99233-AI; 99239; J1630; J1644; J1956; J2250; J2405; J3475; J7030; J7120

== ENCOUNTER 2022-01-26 01:03 | Emergency (ER) | payer MEDICARE, MEDICAID ==
[~2022-01-26] VITALS: Ht 172.7 cm; Wt 77.3 kg
[~2022-01-26 01:03] MED LIST changes: +EUTHYROX25 MCG PO; +LOPRESSOR 225 MG/TAB PO; +NAPROSYN 2250 MG/TAB PO; +VITAMIN D31000 I1 PO
[2022-01-26 01:08] VITALS: BP 117/67; PULSE 67; TEMP 97.1
[2022-01-31] MEDS ORDERED: AMOXICILLIN 50500 MG PO (14:49)
== END 2022-01-26 01:15 | disposition left against medical advice (07) ==
LOC: COL.ER 01:03
DX: F20.0 Paranoid schizophrenia (principal); G25.81 Restless legs syndrome

== ENCOUNTER 2022-02-18 09:58 | Emergency (ER) | payer MEDICARE, MEDICAID ==
[~2022-02-18] VITALS: Ht 172.7 cm; Wt 81.4 kg
[~2022-02-18 09:58] MED LIST changes: +AMOXICILLIN 50500 MG PO
[2022-02-18 10:08] VITALS: TEMP 97.9
[2022-02-18 10:35] LABS: HEMOGLOBIN 11.6 g/dl (13.5-18.0); MEAN CELL VOLUME 90 fl (80.0-100.0); MEAN CORPUSCULAR HEMOGLOBIN 31 pg (27-31); MEAN CORPUSCULAR HGB CONC 35 g/dl (33.0-37.0); MEAN PLATELET VOLUME 8.9 fl (7.4-10.4); PLATELET COUNT 208 K/mm3 (130-400); RED BLOOD COUNT 3.69 M/mm3 (4.20-5.60); REDCELL DISTRIBUTION WIDTH-CV 12.3 % (11.5-14.5)
[2022-02-18 10:38] LABS: HEMATOCRIT 33.3 % (42.0-52.0)
[2022-02-18 10:50] LABS: ALANINE AMINOTRANSFERASE 13 U/L (0-55); ALBUMIN 3.8 gm/dL (3.4-4.8); ALKALINE PHOSPHATASE 90 U/L (40-150); ANION GAP 10 mmol/L (7-16); AST,SGOT 20 U/L (5-34); BILIRUBIN,TOTAL 0.5 mg/dL (0.2-1.2); BLOOD UREA NITROGEN 16 mg/dL (8-26); CALCIUM 8.7 mg/dL (8.4-10.2); CARBON DIOXIDE 22 mmol/L (23-31); CHLORIDE 95 mmol/L (98-107); CREATININE, serum 1.41 mg/dL (0.72-1.25); GLUCOSE 79 mg/dL (70-99); POTASSIUM 4.7 mmol/L (3.5-4.5); SODIUM 127 mmol/L (136-145); TOTAL PROTEIN 6.7 gm/dL (6.2-8.1)
[2022-02-18 10:51] LABS: COLLECTION METHOD CATHETER
[2022-02-18 10:52] LABS: BASOPHIL 2 % (0-2); EOSINOPHIL 26 % (0-4); LYMPHOCYTE 24 % (20.0-51.0); NEUTROPHILS 38 % (42.0-75.2); PLATELET ESTIMATE NORMAL (NORMAL)
[2022-02-18 10:57] LABS: PH 7 (5-8); SQUAMOUS EPITHELIAL None Seen /hpf (0-10); URINE APPEARANCE Clear (CLEAR/HAZY); URINE BACTERIA None Seen /hpf (NONE SEEN); URINE BILIRUBIN Negative (NEGATIVE); URINE BLOOD Negative (NEGATIVE); URINE COLOR Yellow (YELLOW); URINE GLUCOSE Negative (NEGATIVE); URINE KETONE Negative (NEGATIVE); URINE LEUKOCYTE ESTERASE Negative (NEGATIVE); URINE NITRATE Negative (NEGATIVE); URINE PROTEIN(semi-quant) Negative (NEGATIVE); URINE RBC 0-2 /hpf (0-2); URINE UROBILINOGEN Negative (NEGATIVE)
[2022-02-18 11:02] LABS: TROPONIN-I < 0.010 ng/mL (0.00-0.033)
[2022-02-18 11:30] VITALS: BP 118/69; PULSE 77
== END 2022-02-18 11:55 | disposition home or self-care (01) ==
LOC: COL.ER 09:58
PROVIDERS: Nurse Practitioner Family
DX: R33.9 Retention of urine, unspecified (principal); F17.200 Nicotine dependence, unspecified, uncomplicated
CPT/HCPCS: J7030

== ENCOUNTER 2022-03-18 11:10 | Emergency (ER) | payer MEDICARE, MEDICAID ==
[~2022-03-18] VITALS: Ht 175.3 cm; Wt 81.4 kg
[2022-03-18 11:16] VITALS: BP 139/94; PULSE 91; TEMP 97.8
[2022-03-18 12:10] LABS: BASO # 0.1 K/mm3 (0.0-0.2); EOS # 0.9 K/mm3 (0.0-0.7); EOS % 17.3 % (0.0-4.0); GRAN # 2.4 K/mm3 (1.4-6.5); GRAN % 46.5 % (42.2-75.2); HEMATOCRIT 29.9 % (42.0-52.0); HEMOGLOBIN 10.7 g/dl (13.5-18.0); LYMPH % 19.6 % (20.0-51.0); MEAN CELL VOLUME 89 fl (80.0-100.0); MEAN CORPUSCULAR HEMOGLOBIN 32 pg (27-31); MEAN CORPUSCULAR HGB CONC 36 g/dl (33.0-37.0); MEAN PLATELET VOLUME 8.4 fl (7.4-10.4); MONO # 0.8 K/mm3 (0.1-0.6); MONO % 15.2 % (1.7-9.3); PLATELET COUNT 193 K/mm3 (130-400); RED BLOOD COUNT 3.35 M/mm3 (4.20-5.60); REDCELL DISTRIBUTION WIDTH-CV 11.9 % (11.5-14.5)
[2022-03-18 12:15] LABS: CALCIUM 8.6 mg/dL (8.4-10.2); CREATININE, serum 1.22 mg/dL (0.72-1.25); POTASSIUM 4.4 mmol/L (3.5-4.5)
== END 2022-03-18 13:27 | disposition home or self-care (01) ==
LOC: COL.ER 11:10
PROVIDERS: Emergency Medicine
DX: M17.11 Unilateral primary osteoarthritis, right knee (principal); M17.12 Unilateral primary osteoarthritis, left knee; E16.2 Hypoglycemia, unspecified; E87.1 Hypo-osmolality and hyponatremia; M79.605 Pain in left leg; F17.210 Nicotine dependence, cigarettes, uncomplicated

== ENCOUNTER 2022-03-24 03:30 | Emergency (ER) | payer MEDICARE, MEDICAID ==
[~2022-03-24] VITALS: Ht 175.3 cm; Wt 79.5 kg
[2022-03-24 03:32] VITALS: TEMP 97.6
[2022-03-24 03:59] LABS: BASO # 0.1 K/mm3 (0.0-0.2); EOS # 0.8 K/mm3 (0.0-0.7); EOS % 16.3 % (0.0-4.0); GRAN # 2.4 K/mm3 (1.4-6.5); GRAN % 46.9 % (42.2-75.2); HEMOGLOBIN 10.9 g/dl (13.5-18.0); LYMPH % 19.3 % (20.0-51.0); MEAN CELL VOLUME 92 fl (80.0-100.0); MEAN CORPUSCULAR HEMOGLOBIN 32 pg (27-31); MEAN CORPUSCULAR HGB CONC 35 g/dl (33.0-37.0); MEAN PLATELET VOLUME 8.5 fl (7.4-10.4); MONO # 0.8 K/mm3 (0.1-0.6); MONO % 16.3 % (1.7-9.3); PLATELET COUNT 193 K/mm3 (130-400); RED BLOOD COUNT 3.42 M/mm3 (4.20-5.60)
[2022-03-24 04:05] LABS: HEMATOCRIT 31.3 % (42.0-52.0)
[2022-03-24 04:10] LABS: ALANINE AMINOTRANSFERASE 18 U/L (0-55); ALKALINE PHOSPHATASE 101 U/L (40-150); ANION GAP 10 mmol/L (7-16); AST,SGOT 25 U/L (5-34); BILIRUBIN,TOTAL 0.6 mg/dL (0.2-1.2); BLOOD UREA NITROGEN 12 mg/dL (8-26); CARBON DIOXIDE 23 mmol/L (23-31); CHLORIDE 94 mmol/L (98-107); CREATININE, serum 1.31 mg/dL (0.72-1.25); GLUCOSE 88 mg/dL (70-99); POTASSIUM 4.3 mmol/L (3.5-4.5); SODIUM 127 mmol/L (136-145); TOTAL PROTEIN 7.1 gm/dL (6.2-8.1)
[2022-03-24 04:26] LABS: TROPONIN-I < 0.010 ng/mL (0.00-0.033)
[2022-03-24 04:36] VITALS: BP 151/101; PULSE 89
== END 2022-03-24 04:36 | disposition home or self-care (01) ==
LOC: COL.ER 03:30
PROVIDERS: Emergency Medicine
DX: R06.00 Dyspnea, unspecified (principal); D64.9 Anemia, unspecified; E87.1 Hypo-osmolality and hyponatremia; F17.210 Nicotine dependence, cigarettes, uncomplicated; Z20.822 Contact with and (suspected) exposure to COVID-19

== ENCOUNTER 2022-03-31 12:42 | Emergency (ER) | payer MEDICARE, MEDICAID ==
[2022-03-31 12:46] VITALS: BP 136/87; PULSE 91; TEMP 97.2
[2022-03-31 13:19] LABS: BASO # 0.1 K/mm3 (0.0-0.2); BASO % 1.3 % (0.0-2.0); EOS # 0.8 K/mm3 (0.0-0.7); EOS % 17.6 % (0.0-4.0); GRAN # 2.2 K/mm3 (1.4-6.5); GRAN % 46.6 % (42.2-75.2); HEMOGLOBIN 10.3 g/dl (13.5-18.0); LYMPH # 0.9 K/mm3 (1.2-3.4); LYMPH % 18.6 % (20.0-51.0); MEAN CELL VOLUME 90 fl (80.0-100.0); MEAN CORPUSCULAR HEMOGLOBIN 32 pg (27-31); MEAN CORPUSCULAR HGB CONC 36 g/dl (33.0-37.0); MEAN PLATELET VOLUME 8.7 fl (7.4-10.4); MONO # 0.7 K/mm3 (0.1-0.6); MONO % 15.7 % (1.7-9.3); PLATELET COUNT 188 K/mm3 (130-400); RED BLOOD COUNT 3.22 M/mm3 (4.20-5.60); REDCELL DISTRIBUTION WIDTH-CV 11.9 % (11.5-14.5)
[2022-03-31 13:35] LABS: ALANINE AMINOTRANSFERASE 20 U/L (0-55); ALBUMIN 3.7 gm/dL (3.4-4.8); ALKALINE PHOSPHATASE 96 U/L (40-150); ANION GAP 9 mmol/L (7-16); AST,SGOT 24 U/L (5-34); BILIRUBIN,TOTAL 0.3 mg/dL (0.2-1.2); BLOOD UREA NITROGEN 10 mg/dL (8-26); CALCIUM 8.8 mg/dL (8.4-10.2); CARBON DIOXIDE 22 mmol/L (23-31); CHLORIDE 97 mmol/L (98-107); CREATININE, serum 1.36 mg/dL (0.72-1.25); GLUCOSE 117 mg/dL (70-99); POTASSIUM 4.5 mmol/L (3.5-4.5); SODIUM 128 mmol/L (136-145); TOTAL PROTEIN 6.5 gm/dL (6.2-8.1)
[2022-03-31 13:37] LABS: ACETAMINOPHEN < 1.0 ug/mL (10-30); ALCOHOL(ethanol),MEDICAL < 10 mg/dL (0-10); SALICYLATE < 5.0 mg/dL (15.0-30.0)
[2022-03-31 13:40] LABS: TROPONIN-I 0.011 ng/mL (0.00-0.033)
[2022-03-31 13:57] LABS: TRICYCLIC ANTIDEPRESS URINE NEGATIVE
== END 2022-03-31 13:42 | disposition left against medical advice (07) ==
LOC: COL.ER 12:42
PROVIDERS: Nurse Practitioner
DX: F20.0 Paranoid schizophrenia (principal); F17.200 Nicotine dependence, unspecified, uncomplicated; Z28.310 Unvaccinated for COVID-19

== ENCOUNTER 2022-04-01 23:42 | Emergency (ER) | payer MEDICARE, MEDICAID ==
[~2022-04-01] VITALS: Ht 175.3 cm; Wt 81.8 kg
[2022-04-01 23:53] VITALS: BP 165/91; PULSE 85; TEMP 97.9
[2022-04-02] MEDS ORDERED: FLOMAX 0.40.4 MG/CAP PO (00:10)
[2022-04-02] MEDS ORDERED: KLONOPIN 0.5MG0.5 MG PO (00:10)
== END 2022-04-02 00:25 | disposition home or self-care (01) ==
LOC: COL.ER 23:42
DX: F20.0 Paranoid schizophrenia (principal); Z88.8 Allergy status to other drugs, medicaments and biological substances

== ENCOUNTER 2022-04-02 08:23 | Emergency (ER) | payer MEDICARE, MEDICAID ==
[~2022-04-02 08:23] MED LIST changes: +KLONOPIN 0.5MG0.5 MG PO
[2022-04-02 08:31] VITALS: BP 147/114; PULSE 81; TEMP 97.5
== END 2022-04-02 08:40 | disposition left against medical advice (07) ==
LOC: COL.ER 08:23
DX: R10.13 Epigastric pain (principal)

== ENCOUNTER 2022-04-03 00:44 | Emergency (ER) | payer MEDICARE, MEDICAID ==
[~2022-04-03] VITALS: Ht 175.3 cm; Wt 75.0 kg
[2022-04-03 00:57] VITALS: BP 133/85; PULSE 84; TEMP 98.1
== END 2022-04-03 01:50 | disposition left against medical advice (07) ==
LOC: COL.ER 00:44
DX: K59.00 Constipation, unspecified (principal); F17.210 Nicotine dependence, cigarettes, uncomplicated

== ENCOUNTER 2022-04-03 17:24 | Emergency (ER) | payer MEDICARE, MEDICAID ==
[2022-04-03 17:28] VITALS: BP 108/74; PULSE 86; TEMP 98.4
== END 2022-04-03 17:53 | disposition left against medical advice (07) ==
LOC: COL.ER 17:24
DX: Z04.1 Encounter for examination and observation following transport accident (principal); V48.5XXA Car driver injured in noncollision transport accident in traffic accident, initial encounter; Y92.410 Unspecified street and highway as the place of occurrence of the external cause

== ENCOUNTER 2022-04-07 02:05 | Emergency (ER) | payer MEDICARE, MEDICAID | END 2022-04-07 03:08 | disposition left against medical advice (07) | LOC: COL.ER 02:05 | DX: F20.0 Paranoid schizophrenia (principal); F17.200 Nicotine dependence, unspecified, uncomplicated; Z28.310 Unvaccinated for COVID-19 ==

== ENCOUNTER 2022-04-08 22:18 | Emergency (ER) | payer MEDICARE, MEDICAID ==
[2022-04-08 22:21] VITALS: TEMP 98.3
[2022-04-08 22:52] LABS: MEAN CELL VOLUME 90 fl (80.0-100.0); MEAN CORPUSCULAR HEMOGLOBIN 32 pg (27-31); MEAN CORPUSCULAR HGB CONC 35 g/dl (33.0-37.0); MEAN PLATELET VOLUME 8.3 fl (7.4-10.4); PLATELET COUNT 218 K/mm3 (130-400); RED BLOOD COUNT 3.46 M/mm3 (4.20-5.60)
[2022-04-08 23:07] LABS: HEMATOCRIT 31.1 % (42.0-52.0)
[2022-04-08 23:12] LABS: ALBUMIN 3.9 gm/dL (3.4-4.8); BILIRUBIN,TOTAL 0.3 mg/dL (0.2-1.2); CALCIUM 8.9 mg/dL (8.4-10.2); CREATININE, serum 1.59 mg/dL (0.72-1.25); POTASSIUM 4.5 mmol/L (3.5-4.5)
[2022-04-08 23:21] LABS: EOSINOPHIL 16 % (0-4); LYMPHOCYTE 12 % (20.0-51.0); NEUTROPHILS 65 % (42.0-75.2); PLATELET ESTIMATE NORMAL (NORMAL)
[2022-04-09 00:14] LABS: COLLECTION METHOD CLEAN CATCH
[2022-04-09 00:20] LABS: SQUAMOUS EPITHELIAL 0-2 /hpf (0-10); URINE BACTERIA None Seen /hpf (NONE SEEN); URINE COLOR Straw (YELLOW); URINE RBC 0-2 /hpf (0-2)
[2022-04-09 00:21] LABS: PH 6.5 (5.0-8.5); URINE APPEARANCE Clear (CLEAR/HAZY); URINE BLOOD Negative (NEGATIVE); URINE GLUCOSE Negative (NEGATIVE); URINE KETONE Negative (NEGATIVE); URINE NITRATE Negative (NEGATIVE); URINE PROTEIN(semi-quant) Negative (NEGATIVE); URINE UROBILINOGEN 0.2 E.U/dL (0.2-1.0)
[2022-04-09] MEDS ORDERED: FLOMAX 0.40.4 MG/CAP PO (00:33)
[2022-04-09 00:50] VITALS: BP 160/98; PULSE 88
== END 2022-04-09 00:54 | disposition home or self-care (01) ==
LOC: COL.ER 22:18
PROVIDERS: Emergency Medicine
DX: N40.0 Benign prostatic hyperplasia without lower urinary tract symptoms (principal); E87.1 Hypo-osmolality and hyponatremia; R33.9 Retention of urine, unspecified; K76.9 Liver disease, unspecified; F17.210 Nicotine dependence, cigarettes, uncomplicated; Z79.899 Other long term (current) drug therapy
CPT/HCPCS: J2765; J7030; Q9967

== ENCOUNTER 2022-04-11 11:48 | Emergency (ER) | payer MEDICARE, MEDICAID ==
[~2022-04-11] VITALS: Ht 165.1 cm; Wt 90.9 kg
[2022-04-11 11:55] VITALS: BP 95/66; PULSE 85; TEMP 98.1
== END 2022-04-11 12:35 | disposition home or self-care (01) ==
LOC: COL.ER 11:48
DX: M25.562 Pain in left knee (principal); F17.200 Nicotine dependence, unspecified, uncomplicated

== ENCOUNTER 2022-04-22 01:14 | Emergency (ER) | payer MEDICARE, MEDICAID ==
[~2022-04-22] VITALS: Ht 175.3 cm; Wt 78.3 kg
[2022-04-22 01:19] VITALS: BP 119/77; PULSE 83; TEMP 97.9
== END 2022-04-22 01:41 | disposition home or self-care (01) ==
LOC: COL.ER 01:14
DX: F20.0 Paranoid schizophrenia (principal); F17.210 Nicotine dependence, cigarettes, uncomplicated

== ENCOUNTER 2022-04-29 11:34 | Emergency (ER) | payer MEDICARE, MEDICAID ==
[~2022-04-29] VITALS: Ht 175.3 cm; Wt 81.4 kg
[2022-04-29 11:37] VITALS: BP 133/102; PULSE 81; TEMP 98.1
[2022-04-29] MEDS ORDERED: KLONOPIN 0.5MG0.5 MG PO ×3 (11:54→12:31)
== END 2022-04-29 12:40 | disposition home or self-care (01) ==
LOC: COL.ER 11:34
DX: F20.0 Paranoid schizophrenia (principal); F41.9 Anxiety disorder, unspecified; Z28.310 Unvaccinated for COVID-19; Z88.8 Allergy status to other drugs, medicaments and biological substances

== ENCOUNTER → 2022-05-01 | Emergency (ER) | payer MEDICARE, MEDICAID ==
[2022-05-01 16:35] VITALS: BP 138/95; PULSE 79; TEMP 98.1
== END ==
LOC: COL.ER 16:17
DX: F20.0 Paranoid schizophrenia (principal); Z91.19 Patient's noncompliance with other medical treatment and regimen; F17.200 Nicotine dependence, unspecified, uncomplicated; Z28.310 Unvaccinated for COVID-19; Z88.8 Allergy status to other drugs, medicaments and biological substances

== ENCOUNTER 2022-05-03 11:18 | Emergency (ER) | payer MEDICARE, MEDICAID ==
[2022-05-03 11:24] VITALS: TEMP 99
[2022-05-03 11:27] VITALS: BP 108/67; PULSE 72
[2022-05-03 11:55] LABS: BASO # 0.1 K/mm3 (0.0-0.2); BASO % 1.5 % (0.0-2.0); EOS # 0.5 K/mm3 (0.0-0.7); EOS % 12.5 % (0.0-4.0); GRAN # 1.9 K/mm3 (1.4-6.5); GRAN % 47.9 % (42.2-75.2); HEMOGLOBIN 10.8 g/dl (13.5-18.0); LYMPH # 0.9 K/mm3 (1.2-3.4); LYMPH % 22.9 % (20.0-51.0); MEAN CELL VOLUME 91 fl (80.0-100.0); MEAN CORPUSCULAR HEMOGLOBIN 32 pg (27-31); MEAN CORPUSCULAR HGB CONC 35 g/dl (33.0-37.0); MEAN PLATELET VOLUME 8.4 fl (7.4-10.4); MONO # 0.6 K/mm3 (0.1-0.6); MONO % 14.7 % (1.7-9.3); PLATELET COUNT 190 K/mm3 (130-400); RED BLOOD COUNT 3.42 M/mm3 (4.20-5.60); REDCELL DISTRIBUTION WIDTH-CV 12.3 % (11.5-14.5)
[2022-05-03 11:56] LABS: HEMATOCRIT 31.1 % (42.0-52.0)
[2022-05-03 12:05] LABS: ALBUMIN 3.8 gm/dL (3.4-4.8); BILIRUBIN,TOTAL 0.5 mg/dL (0.2-1.2); CALCIUM 8.6 mg/dL (8.4-10.2); CREATININE, serum 1.34 mg/dL (0.72-1.25); POTASSIUM 4.5 mmol/L (3.5-4.5); TOTAL PROTEIN 6.6 gm/dL (6.2-8.1)
[2022-05-03 12:15] LABS: TROPONIN-I 0.013 ng/mL (0.00-0.033)
== END 2022-05-03 12:45 | disposition left against medical advice (07) ==
LOC: COL.ER 11:18
PROVIDERS: Emergency Medicine
DX: Z00.00 Encounter for general adult medical examination without abnormal findings (principal); E87.1 Hypo-osmolality and hyponatremia; D64.9 Anemia, unspecified; F17.210 Nicotine dependence, cigarettes, uncomplicated

== ENCOUNTER 2022-05-28 09:30 | Emergency (ER) | payer MEDICARE, MEDICAID ==
[~2022-05-28] VITALS: Ht 182.9 cm; Wt 79.5 kg
[2022-05-28 09:53] VITALS: TEMP 97.1
[2022-05-28 11:03] LABS: BASO # 0.1 K/mm3 (0.0-0.2); BASO % 1.1 % (0.0-2.0); EOS # 0.3 K/mm3 (0.0-0.7); EOS % 4.6 % (0.0-4.0); GRAN # 3.7 K/mm3 (1.4-6.5); GRAN % 64.5 % (42.2-75.2); HEMOGLOBIN 10.6 g/dl (13.5-18.0); LYMPH # 0.8 K/mm3 (1.2-3.4); LYMPH % 13.3 % (20.0-51.0); MEAN CELL VOLUME 92 fl (80.0-100.0); MEAN CORPUSCULAR HEMOGLOBIN 32 pg (27-31); MEAN CORPUSCULAR HGB CONC 35 g/dl (33.0-37.0); MEAN PLATELET VOLUME 8.7 fl (7.4-10.4); MONO # 0.9 K/mm3 (0.1-0.6); MONO % 16.1 % (1.7-9.3); PLATELET COUNT 201 K/mm3 (130-400); RED BLOOD COUNT 3.34 M/mm3 (4.20-5.60); REDCELL DISTRIBUTION WIDTH-CV 12.7 % (11.5-14.5)
[2022-05-28 11:04] LABS: HEMATOCRIT 30.6 % (42.0-52.0)
[2022-05-28 11:19] LABS: ALANINE AMINOTRANSFERASE 16 U/L (0-55); ALKALINE PHOSPHATASE 92 U/L (40-150); ANION GAP 9 mmol/L (7-16); AST,SGOT 20 U/L (5-34); BILIRUBIN,TOTAL 0.4 mg/dL (0.2-1.2); BLOOD UREA NITROGEN 16 mg/dL (8-26); CALCIUM 9.1 mg/dL (8.4-10.2); CARBON DIOXIDE 25 mmol/L (23-31); CHLORIDE 96 mmol/L (98-107); CREATININE, serum 1.37 mg/dL (0.72-1.25); GLUCOSE 103 mg/dL (70-99); POTASSIUM 4.5 mmol/L (3.5-4.5); SODIUM 130 mmol/L (136-145); TOTAL PROTEIN 7.2 gm/dL (6.2-8.1)
[2022-05-28 11:31] LABS: ACETAMINOPHEN < 1.0 ug/mL (10-30); ALCOHOL(ethanol),MEDICAL < 10 mg/dL (0-10); SALICYLATE < 5.0 mg/dL (15.0-30.0)
[2022-05-28 11:38] LABS: TSH w REFLEX 5.906 uIU/mL (0.350-4.940)
[2022-05-28 12:01] LABS: COLLECTION METHOD CLEAN CATCH
[2022-05-28 12:14] LABS: PH 5.5 (5.0-8.5); URINE APPEARANCE Clear (CLEAR/HAZY); URINE COLOR Yellow (YELLOW); URINE GLUCOSE Negative (NEGATIVE); URINE PROTEIN(semi-quant) Negative (NEGATIVE)
[2022-05-28 12:15] LABS: URINE BLOOD Negative (NEGATIVE); URINE KETONE TRACE (NEGATIVE); URINE NITRATE Negative (NEGATIVE); URINE UROBILINOGEN 0.2 E.U/dL (0.2-1.0)
[2022-05-28 12:18] LABS: MUCOUS Present (NOT PRESENT); SQUAMOUS EPITHELIAL 0-2 /hpf (0-10); URINE BACTERIA None Seen /hpf (NONE SEEN)
[2022-05-28 12:26] LABS: TRICYCLIC ANTIDEPRESS URINE POSITIVE
[2022-05-28 12:45] VITALS: BP 110/65; PULSE 93
== END 2022-05-28 16:25 | disposition home or self-care (01) ==
LOC: COL.ER 09:30
PROVIDERS: Emergency Medicine
DX: S60.811A Abrasion of right wrist, initial encounter (principal); R45.851 Suicidal ideations; F17.210 Nicotine dependence, cigarettes, uncomplicated; Z88.8 Allergy status to other drugs, medicaments and biological substances; W18.30XA Fall on same level, unspecified, initial encounter
CPT/HCPCS: J2250

== ENCOUNTER 2022-05-28 22:39 | Emergency (ER) | payer MEDICARE, MEDICAID ==
[~2022-05-28] VITALS: Ht 182.9 cm; Wt 79.5 kg
[2022-05-28 22:46] VITALS: BP 147/90; PULSE 78; TEMP 97.3
== END 2022-05-28 23:53 | disposition home or self-care (01) ==
LOC: COL.ER 22:39
DX: F20.9 Schizophrenia, unspecified (principal); G25.81 Restless legs syndrome; F17.210 Nicotine dependence, cigarettes, uncomplicated

== ENCOUNTER 2022-06-02 01:16 | Emergency (ER) | payer MEDICARE, MEDICAID ==
[~2022-06-02] VITALS: Ht 175.3 cm; Wt 72.7 kg
[2022-06-02 01:32] VITALS: TEMP 98
[2022-06-02 02:23] VITALS: BP 145/78; PULSE 76
== END 2022-06-02 02:23 | disposition home or self-care (01) ==
LOC: COL.ER 01:16
DX: R23.4 Changes in skin texture (principal); F17.210 Nicotine dependence, cigarettes, uncomplicated; Z88.1 Allergy status to other antibiotic agents; Z28.310 Unvaccinated for COVID-19

== ENCOUNTER 2022-11-19 19:02 | Emergency (ER) | payer MEDICARE ==
[~2022-11-19] VITALS: Ht 175.3 cm; Wt 81.8 kg
[~2022-11-19 19:02] MED LIST changes: +DOXYCYCLINE HY100 MG PO; +REQUIP 0.5MG0.5 MG PO; +REQUIP0.25 MG PO; -SEROQUEL 200MG200 MG PO
[2022-11-19 19:05] VITALS: BP 162/86; PULSE 79; TEMP 97.5
== END 2022-11-19 19:47 | disposition home or self-care (01) ==
LOC: COL.ER 19:02
DX: L29.9 Pruritus, unspecified (principal); F17.210 Nicotine dependence, cigarettes, uncomplicated

== ENCOUNTER 2022-11-23 23:08 | Emergency (ER) | payer MEDICARE ==
[~2022-11-23] VITALS: Ht 175.3 cm; Wt 84.1 kg
[2022-11-23 23:14] VITALS: BP 168/98; TEMP 97.1
[2022-11-23 23:39] LABS: COLLECTION METHOD CLEAN CATCH
[2022-11-23 23:44] LABS: MUCOUS Present (NOT PRESENT); PH 6.5 (5.0-8.5); SQUAMOUS EPITHELIAL 0-2 /hpf (0-10); URINE APPEARANCE Clear (CLEAR/HAZY); URINE BACTERIA None Seen /hpf (NONE SEEN); URINE BLOOD Negative (NEGATIVE); URINE COLOR Straw (YELLOW); URINE GLUCOSE Negative (NEGATIVE); URINE KETONE Negative (NEGATIVE); URINE NITRATE Negative (NEGATIVE); URINE PROTEIN(semi-quant) Negative (NEGATIVE); URINE RBC 0-2 /hpf (0-2); URINE UROBILINOGEN 0.2 E.U/dL (0.2-1.0)
[2022-11-24 01:05] VITALS: PULSE 70
== END 2022-11-24 01:06 | disposition home or self-care (01) ==
LOC: COL.ER 23:08
PROVIDERS: Nurse Practitioner
DX: R11.0 Nausea (principal); G25.81 Restless legs syndrome; F17.210 Nicotine dependence, cigarettes, uncomplicated; Z28.310 Unvaccinated for COVID-19

== ENCOUNTER 2022-11-24 13:18 | Emergency (ER) | payer MEDICARE ==
[~2022-11-24] VITALS: Ht 177.8 cm; Wt 75.0 kg
[2022-11-24 13:30] VITALS: BP 134/77; PULSE 68; TEMP 97.3
== END 2022-11-24 15:42 | disposition home or self-care (01) ==
LOC: COL.ER 13:18
DX: M25.512 Pain in left shoulder (principal); F17.200 Nicotine dependence, unspecified, uncomplicated

== ENCOUNTER 2022-11-28 18:03 | Emergency (ER) | payer MEDICARE ==
[~2022-11-28] VITALS: Ht 175.3 cm; Wt 81.8 kg
[2022-11-28 18:14] VITALS: BP 155/93; PULSE 83; TEMP 98.1
== END 2022-11-28 19:05 | disposition home or self-care (01) ==
LOC: COL.ER 18:03
DX: M17.12 Unilateral primary osteoarthritis, left knee (principal)
CPT/HCPCS: J1885; J2360

== ENCOUNTER 2022-11-28 22:11 | Emergency (ER) | payer MEDICARE ==
[~2022-11-28] VITALS: Ht 175.3 cm; Wt 72.7 kg
[2022-11-28 22:34] VITALS: BP 167/80; PULSE 79; TEMP 98.1
== END 2022-11-29 00:20 | disposition home or self-care (01) ==
LOC: COL.ER 22:11
DX: F41.9 Anxiety disorder, unspecified (principal); F20.0 Paranoid schizophrenia; L84 Corns and callosities; F17.200 Nicotine dependence, unspecified, uncomplicated

== ENCOUNTER 2022-11-29 12:33 | Emergency (ER) | payer MEDICARE ==
[~2022-11-29] VITALS: Ht 175.3 cm; Wt 72.7 kg
[2022-11-29 12:34] VITALS: BP 158/79; PULSE 76; TEMP 97.7
== END 2022-11-29 13:03 | disposition home or self-care (01) ==
LOC: COL.ER 12:33
DX: R11.2 Nausea with vomiting, unspecified (principal)

== ENCOUNTER 2022-12-13 12:02 | Emergency (ER) | payer MEDICARE ==
[~2022-12-13] VITALS: Ht 175.3 cm; Wt 72.7 kg
[2022-12-13 13:03] VITALS: BP 131/85; PULSE 80; TEMP 98.1
== END 2022-12-13 12:31 | disposition home or self-care (01) ==
LOC: COL.ER 12:02
DX: M17.12 Unilateral primary osteoarthritis, left knee (principal); G89.29 Other chronic pain; F17.200 Nicotine dependence, unspecified, uncomplicated; Z28.310 Unvaccinated for COVID-19

== ENCOUNTER 2023-05-19 00:30 | Emergency (ER) | payer MEDICARE ==
[~2023-05-19] VITALS: Ht 182.9 cm; Wt 77.3 kg
[~2023-05-19 00:30] MED LIST changes: +ATARAX50 MG PO; +MELLARIL PO; +NEURONTIN100 MG/CAP PO; +PROLIX5TA; +THORAZINE100 MG/TAB PO; +ZITHROMAX Z PA250 MG PO
[2023-05-19 00:33] VITALS: TEMP 98.2
[2023-05-19 01:40] VITALS: BP 157/92; PULSE 82
== END 2023-05-19 01:40 | disposition home or self-care (01) ==
LOC: COL.ER 00:30
DX: G47.00 Insomnia, unspecified (principal); F17.200 Nicotine dependence, unspecified, uncomplicated

== ENCOUNTER 2023-05-22 23:54 | Emergency (ER) | payer MEDICARE ==
[~2023-05-22] VITALS: Ht 185.4 cm; Wt 81.8 kg
[2023-05-23 00:02] VITALS: TEMP 983
[2023-05-23 00:37] LABS: BASO # 0.1 K/mm3 (0.0-0.2); BASO % 0.9 % (0.0-2.0); EOS # 0.6 K/mm3 (0.0-0.7); EOS % 8.7 % (0.0-4.0); GRAN # 3.9 K/mm3 (1.4-6.5); GRAN % 56.3 % (42.2-75.2); HEMOGLOBIN 12.2 g/dl (13.5-18.0); LYMPH # 1.1 K/mm3 (1.2-3.4); LYMPH % 15.6 % (20.0-51.0); MEAN CELL VOLUME 94 fl (80.0-100.0); MEAN CORPUSCULAR HEMOGLOBIN 32 pg (27-31); MEAN CORPUSCULAR HGB CONC 34 g/dl (33.0-37.0); MEAN PLATELET VOLUME 8.8 fl (7.4-10.4); MONO # 1.3 K/mm3 (0.1-0.6); MONO % 18.2 % (1.7-9.3); PLATELET COUNT 251 K/mm3 (130-400); RED BLOOD COUNT 3.83 M/mm3 (4.20-5.60)
[2023-05-23 00:41] LABS: HEMATOCRIT 36.1 % (42.0-52.0)
[2023-05-23 00:58] LABS: ALANINE AMINOTRANSFERASE 23 U/L (0-55); ALBUMIN 4.3 gm/dL (3.4-4.8); ALKALINE PHOSPHATASE 104 U/L (40-150); ANION GAP 11 mmol/L (7-16); AST,SGOT 30 U/L (5-34); BILIRUBIN,TOTAL 0.4 mg/dL (0.2-1.2); BLOOD UREA NITROGEN 27 mg/dL (8-26); C-REACTIVE PROTEIN 0.13 mg/dL (0.00-0.50); CALCIUM 9.2 mg/dL (8.4-10.2); CARBON DIOXIDE 23 mmol/L (23-31); CHLORIDE 99 mmol/L (98-107); CREATININE, serum 1.34 mg/dL (0.72-1.25); GLUCOSE 118 mg/dL (70-99); LIPASE 35 U/L (8-78); POTASSIUM 4.6 mmol/L (3.5-4.5); SODIUM 133 mmol/L (136-145); TOTAL PROTEIN 7.5 gm/dL (6.2-8.1)
[2023-05-23 01:05] LABS: TROPONIN-I < 0.010 ng/mL (0.00-0.033)
[2023-05-23 02:14] LABS: COLLECTION METHOD CLEAN CATCH
[2023-05-23 02:31] LABS: PH 6.5 (5.0-8.5); SQUAMOUS EPITHELIAL 0-2 /hpf (0-10); URINE APPEARANCE Clear (CLEAR/HAZY); URINE BACTERIA None Seen /hpf (NONE SEEN); URINE BLOOD Negative (NEGATIVE); URINE COLOR Yellow (YELLOW); URINE GLUCOSE Negative (NEGATIVE); URINE KETONE Negative (NEGATIVE); URINE NITRATE Negative (NEGATIVE); URINE PROTEIN(semi-quant) Negative (NEGATIVE); URINE RBC 0-2 /hpf (0-2); URINE UROBILINOGEN 0.2 E.U/dL (0.2-1.0)
[2023-05-23 05:50] VITALS: BP 158/72; PULSE 89
== END 2023-05-23 06:18 | disposition home or self-care (01) ==
LOC: COL.ER 23:54
PROVIDERS: Nurse Practitioner Primary Care
DX: K52.9 Noninfective gastroenteritis and colitis, unspecified (principal); Z79.899 Other long term (current) drug therapy; Z28.310 Unvaccinated for COVID-19
CPT/HCPCS: J2405; J7030

== ENCOUNTER 2023-05-28 00:10 | Emergency (ER) | payer MEDICARE ==
[~2023-05-28] VITALS: Ht 175.3 cm; Wt 78.2 kg
[2023-05-28 00:11] VITALS: BP 126/91; TEMP 98.6
[2023-05-28 00:48] VITALS: PULSE 78
== END 2023-05-28 00:49 | disposition home or self-care (01) ==
LOC: COL.ER 00:10
DX: G47.00 Insomnia, unspecified (principal); F17.200 Nicotine dependence, unspecified, uncomplicated

== ENCOUNTER 2023-07-04 22:02 | Emergency (ER) | payer MEDICARE ==
[~2023-07-04] VITALS: Ht 177.8 cm; Wt 75.6 kg
[2023-07-04 23:41] VITALS: BP 152/80; PULSE 88; TEMP 98.2
== END 2023-07-04 23:41 | disposition home or self-care (01) ==
LOC: COL.ER 22:02
DX: R19.7 Diarrhea, unspecified (principal); F17.200 Nicotine dependence, unspecified, uncomplicated

== ENCOUNTER 2023-07-05 19:58 | Emergency (ER) | payer MEDICARE ==
[~2023-07-05] VITALS: Ht 175.3 cm; Wt 76.4 kg
[2023-07-05 20:15] VITALS: PULSE 100; TEMP 98.3
== END 2023-07-05 20:44 | disposition home or self-care (01) ==
LOC: COL.ER 19:58
DX: Z76.0 Encounter for issue of repeat prescription (principal); G47.00 Insomnia, unspecified

== ENCOUNTER 2023-10-19 12:38 | Emergency (ER) | payer MEDICARE ==
[~2023-10-19] VITALS: Ht 177.8 cm; Wt 79.5 kg
[~2023-10-19 12:38] MED LIST changes: +DOXYCYCLINE 10100 MG PO; +LASIX 20MG TABL20 MG PO; +[UNRECOGNIZED DRUG - CODE] IM
[2023-10-19 12:47] VITALS: TEMP 97.5
[2023-10-19] MEDS ORDERED: NS 1,000 ML IV ONE (13:15)
[2023-10-19 13:33] LABS: HEMOGLOBIN 11.5 g/dl (13.5-18.0); MEAN CELL VOLUME 94 fl (80.0-100.0); MEAN CORPUSCULAR HEMOGLOBIN 32 pg (27-31); MEAN CORPUSCULAR HGB CONC 34 g/dl (33.0-37.0); MEAN PLATELET VOLUME 8.8 fl (7.4-10.4); PLATELET COUNT 183 K/mm3 (130-400); RED BLOOD COUNT 3.57 M/mm3 (4.20-5.60); REDCELL DISTRIBUTION WIDTH-CV 12.1 % (11.5-14.5)
[2023-10-19 13:35] LABS: HEMATOCRIT 33.6 % (42.0-52.0)
[2023-10-19 13:56] LABS: BAND 1 % (0-10); EOSINOPHIL 19 % (0-4); LYMPHOCYTE 18 % (20.0-51.0); NEUTROPHILS 50 % (42.0-75.2); PLATELET ESTIMATE NORMAL (NORMAL)
[2023-10-19 13:58] LABS: ALBUMIN 3.5 gm/dL (3.4-4.8); BILIRUBIN,TOTAL 0.3 mg/dL (0.2-1.2); CALCIUM 8.7 mg/dL (8.4-10.2); CREATININE, serum 1.32 mg/dL (0.72-1.25); TOTAL PROTEIN 6.7 gm/dL (6.2-8.1)
[2023-10-19 14:33] LABS: COLLECTION METHOD CLEAN CATCH
[2023-10-19] MEDS ORDERED: Acetaminophen 500 MG TAB PO ONE (14:45)
[2023-10-19 14:53] LABS: PH 6.5 (5.0-8.5); URINE APPEARANCE CLEAR (CLEAR/HAZY); URINE BLOOD NEGATIVE (NEGATIVE); URINE COLOR YELLOW (YELLOW); URINE GLUCOSE NEGATIVE (NEGATIVE); URINE KETONE NEGATIVE (NEGATIVE); URINE NITRATE NEGATIVE (NEGATIVE); URINE PROTEIN(semi-quant) NEGATIVE (NEGATIVE); URINE UROBILINOGEN 0.2 E.U/dL (0.2-1.0)
[2023-10-19 15:07] VITALS: BP 110/69; PULSE 86
== END 2023-10-19 15:07 | disposition home or self-care (01) ==
LOC: COL.ER
PROVIDERS: Nurse Practitioner
DX: R53.1 Weakness (principal); F17.210 Nicotine dependence, cigarettes, uncomplicated
CPT/HCPCS: J7030

== ENCOUNTER 2023-10-21 05:38 | Emergency (ER) | payer MEDICARE ==
[~2023-10-21] VITALS: Ht 177.8 cm; Wt 90.9 kg
[2023-10-21 05:43] VITALS: TEMP 97.8
[2023-10-21] MEDS ORDERED: dexAMETHasone 10 MG/ML VIAL PO ONE (06:30)
[2023-10-21] MEDS ORDERED: Albuterol 90 MCG/PUFF 8 GM MDI IH ONE (06:30)
[2023-10-21 06:47] VITALS: BP 156/99; PULSE 80
== END 2023-10-21 06:48 | disposition home or self-care (01) ==
LOC: COL.ER 05:38
DX: J44.1 Chronic obstructive pulmonary disease with (acute) exacerbation (principal); F17.200 Nicotine dependence, unspecified, uncomplicated
CPT/HCPCS: J1100

== ENCOUNTER 2023-10-25 01:32 | Emergency (ER) | payer MEDICARE ==
[~2023-10-25] VITALS: Ht 177.8 cm; Wt 77.0 kg
[2023-10-25 01:33] VITALS: TEMP 97.9
[2023-10-25] MEDS ORDERED: Ibuprofen 200 MG TAB PO ONE (02:00)
[2023-10-25] MEDS ORDERED: Albuterol/Ipratropium 3 MG-0.5 MG/3 ML Neb Soln IH ONE (02:45)
[2023-10-25 03:20] VITALS: BP 120/77; PULSE 76
== END 2023-10-25 03:20 | disposition home or self-care (01) ==
LOC: COL.ER 01:32
DX: J44.9 Chronic obstructive pulmonary disease, unspecified (principal)

== ENCOUNTER 2023-11-11 06:58 | Emergency (ER) | payer MEDICARE, MEDICAID ==
[~2023-11-11 06:58] MED LIST changes: +AMOXICILLIN 8751 TAB PO
[2023-11-11 07:00] VITALS: TEMP 98.1
[2023-11-11] MEDS ORDERED: Acetaminophen 500 MG TAB PO ONE (07:15)
[2023-11-11 07:24] VITALS: BP 164/50; PULSE 84
[2023-11-12] MEDS ORDERED: PREDNISONE20 MG PO (03:09)
== END 2023-11-11 07:30 | disposition home or self-care (01) ==
LOC: COL.ER 06:58
DX: F41.9 Anxiety disorder, unspecified (principal)

== ENCOUNTER 2023-11-12 01:23 | Emergency (ER) | payer MEDICARE, MEDICAID ==
[~2023-11-12] VITALS: Ht 170.2 cm; Wt 86.4 kg
[2023-11-12 01:24] VITALS: TEMP 98.4
[2023-11-12] MEDS ORDERED: predniSONE 50 MG,predniSONE 10 MG PO ONE (01:45)
[2023-11-12] MEDS ORDERED: Albuterol/Ipratropium 3 MG-0.5 MG/3 ML Neb Soln IH ONE ×2 (01:45→03:15)
[2023-11-12 01:58] LABS: HEMOGLOBIN 10.6 g/dl (13.5-18.0); MEAN CELL VOLUME 93 fl (80.0-100.0); MEAN CORPUSCULAR HEMOGLOBIN 31 pg (27-31); MEAN CORPUSCULAR HGB CONC 34 g/dl (33.0-37.0); MEAN PLATELET VOLUME 9.6 fl (7.4-10.4); PLATELET COUNT 191 K/mm3 (130-400); RED BLOOD COUNT 3.38 M/mm3 (4.20-5.60); REDCELL DISTRIBUTION WIDTH-CV 12.1 % (11.5-14.5)
[2023-11-12 02:03] LABS: HEMATOCRIT 31.4 % (42.0-52.0)
--- NOTE | 2023-11-12 02:13 | NUR ---
PT STATED "TAKE IT OFF, TURN IT OFF". RT TURNED TX OFF. PT STATED "YOUR KILLING ME".
[2023-11-12 02:15] LABS: ALANINE AMINOTRANSFERASE 17 U/L (0-55); ALBUMIN 3.6 g/dL (3.4-4.8); ALKALINE PHOSPHATASE 100 U/L (40-150); ANION GAP 8 mmol/L (7-16); AST,SGOT 18 U/L (5-34); BILIRUBIN,TOTAL 0.5 mg/dL (0.2-1.2); BLOOD UREA NITROGEN 15 mg/dL (8-26); CALCIUM 8.4 mg/dL (8.4-10.2); CHLORIDE 99 mEq/L (98-107); CREATININE, serum 1.14 mg/dL (0.72-1.25); GLUCOSE 88 mg/dL (70-99); POTASSIUM 4.1 mEq/L (3.5-4.5); SODIUM 131 mEq/L (136-145); TOTAL PROTEIN 6.4 g/dl (6.2-8.1)
[2023-11-12 02:22] LABS: BAND 1 % (0-10); EOSINOPHIL 10 % (0-4); NEUTROPHILS 50 % (42.0-75.2); PLATELET ESTIMATE NORMAL (NORMAL)
[2023-11-12 02:23] LABS: LYMPHOCYTE 25 % (20.0-51.0)
[2023-11-12 02:25] LABS: TROPONIN-I < 0.010 ng/mL (0.00-0.033)
[2023-11-12] MEDS ORDERED: Albuterol 90 MCG/PUFF 8 GM MDI IH ONE (03:00)
[2023-11-12] MEDS ORDERED: PREDNISONE20 MG PO (03:09)
[2023-11-12 03:30] VITALS: BP 140/90; PULSE 71
== END 2023-11-12 03:30 | disposition home or self-care (01) ==
LOC: COL.ER 01:23
PROVIDERS: Nurse Practitioner
DX: J20.9 Acute bronchitis, unspecified (principal); F17.200 Nicotine dependence, unspecified, uncomplicated
CPT/HCPCS: J7512

== ENCOUNTER 2023-11-12 14:47 | Emergency (ER) | payer MEDICARE, MEDICAID ==
[~2023-11-12] VITALS: Ht 177.8 cm; Wt 86.4 kg
[~2023-11-12 14:47] MED LIST changes: +PREDNISONE20 MG PO
[2023-11-12 15:00] VITALS: TEMP 98.2
[2023-11-12 15:35] VITALS: BP 136/80; PULSE 69
== END 2023-11-12 15:37 | disposition home or self-care (01) ==
LOC: COL.ER 14:47
DX: J42 Unspecified chronic bronchitis (principal); F17.210 Nicotine dependence, cigarettes, uncomplicated

== ENCOUNTER 2023-11-13 06:07 | Emergency (ER) | payer MEDICARE, MEDICAID ==
[2023-11-13 06:13] VITALS: BP 155/88; PULSE 75; TEMP 97.9
[2023-11-13] MEDS ORDERED: Haloperidol Lactate 5 MG/ML VIAL IV ONE (06:30)
[2023-11-13 06:38] LABS: BASO % 0.4 % (0.0-2.0); EOS # 0.2 K/mm3 (0.0-0.7); EOS % 4.7 % (0.0-4.0); GRAN # 2.9 K/mm3 (1.4-6.5); GRAN % 59.5 % (42.2-75.2); HEMOGLOBIN 11.7 g/dl (13.5-18.0); LYMPH # 1.1 K/mm3 (1.2-3.4); LYMPH % 23.2 % (20.0-51.0); MEAN CELL VOLUME 93 fl (80.0-100.0); MEAN CORPUSCULAR HEMOGLOBIN 31 pg (27-31); MEAN CORPUSCULAR HGB CONC 34 g/dl (33.0-37.0); MEAN PLATELET VOLUME 9.4 fl (7.4-10.4); MONO # 0.6 K/mm3 (0.1-0.6); PLATELET COUNT 232 K/mm3 (130-400); RED BLOOD COUNT 3.74 M/mm3 (4.20-5.60); REDCELL DISTRIBUTION WIDTH-CV 12.2 % (11.5-14.5)
[2023-11-13 06:41] LABS: HEMATOCRIT 34.8 % (42.0-52.0)
[2023-11-13 07:03] LABS: ALANINE AMINOTRANSFERASE 21 U/L (0-55); ALBUMIN 3.7 g/dL (3.4-4.8); ALKALINE PHOSPHATASE 98 U/L (40-150); ANION GAP 9 mmol/L (7-16); AST,SGOT 29 U/L (5-34); BILIRUBIN,TOTAL 0.6 mg/dL (0.2-1.2); BLOOD UREA NITROGEN 16 mg/dL (8-26); CALCIUM 8.9 mg/dL (8.4-10.2); CHLORIDE 100 mEq/L (98-107); CREATININE, serum 1.17 mg/dL (0.72-1.25); GLUCOSE 112 mg/dL (70-99); POTASSIUM 3.5 mEq/L (3.5-4.5); SODIUM 135 mEq/L (136-145); TOTAL PROTEIN 7.3 g/dl (6.2-8.1)
[2023-11-13 07:10] LABS: TROPONIN-I < 0.010 ng/mL (0.00-0.033)
[2023-11-13] MEDS ORDERED: Acetaminophen 500 MG TAB PO ONE ×2 (07:15→07:30)
== END 2023-11-13 07:28 | disposition home or self-care (01) ==
LOC: COL.ER 06:07
PROVIDERS: Personal Emergency Response Attendant
DX: R07.9 Chest pain, unspecified (principal); R51.9 Headache, unspecified

== ENCOUNTER 2023-11-15 06:22 | Emergency (ER) | payer MEDICARE, MEDICAID ==
[~2023-11-15] VITALS: Ht 177.8 cm; Wt 81.6 kg
[2023-11-15 06:23] VITALS: BP 119/82; PULSE 73; TEMP 98
[2023-11-15] MEDS ORDERED: Sucralfate Susp 1 GM/10 ML UD PO ONE (06:45)
== END 2023-11-15 07:48 | disposition left against medical advice (07) ==
LOC: COL.ER 06:22
DX: R10.33 Periumbilical pain (principal); R10.13 Epigastric pain; M54.50 Low back pain, unspecified; M25.561 Pain in right knee

== ENCOUNTER 2023-11-16 00:26 | Emergency (ER) | payer MEDICARE, MEDICAID ==
[~2023-11-16] VITALS: Ht 177.8 cm; Wt 86.4 kg
[2023-11-16 00:27] VITALS: TEMP 97.6
[2023-11-16] MEDS ORDERED: Ibuprofen 200 MG TAB PO ONE (00:45)
[2023-11-16 02:02] VITALS: BP 120/70; PULSE 71
== END 2023-11-16 02:03 | disposition home or self-care (01) ==
LOC: COL.ER 00:26
DX: S90.425A Blister (nonthermal), left lesser toe(s), initial encounter (principal); M79.671 Pain in right foot; F17.200 Nicotine dependence, unspecified, uncomplicated; X58.XXXA Exposure to other specified factors, initial encounter

== ENCOUNTER 2023-11-16 21:49 | Emergency (ER) | payer MEDICARE, MEDICAID ==
[2023-11-16 21:51] VITALS: TEMP 97.9
[2023-11-16 22:11] LABS: BASO # 0.1 K/mm3 (0.0-0.2); BASO % 0.8 % (0.0-2.0); EOS # 1.1 K/mm3 (0.0-0.7); EOS % 18.2 % (0.0-4.0); GRAN # 2.6 K/mm3 (1.4-6.5); GRAN % 42.4 % (42.2-75.2); HEMOGLOBIN 12.1 g/dl (13.5-18.0); LYMPH # 1.3 K/mm3 (1.2-3.4); LYMPH % 20.1 % (20.0-51.0); MEAN CELL VOLUME 95 fl (80.0-100.0); MEAN CORPUSCULAR HEMOGLOBIN 32 pg (27-31); MEAN CORPUSCULAR HGB CONC 33 g/dl (33.0-37.0); MEAN PLATELET VOLUME 8.9 fl (7.4-10.4); MONO # 1.1 K/mm3 (0.1-0.6); MONO % 18.2 % (1.7-9.3); PLATELET COUNT 311 K/mm3 (130-400); RED BLOOD COUNT 3.84 M/mm3 (4.20-5.60); REDCELL DISTRIBUTION WIDTH-CV 12.4 % (11.5-14.5)
[2023-11-16 22:13] LABS: HEMATOCRIT 36.5 % (42.0-52.0)
[2023-11-16] MEDS ORDERED: Acetaminophen 500 MG TAB PO ONE (22:15)
[2023-11-16 22:30] LABS: ALANINE AMINOTRANSFERASE 18 U/L (0-55); ALBUMIN 3.8 g/dL (3.4-4.8); ALKALINE PHOSPHATASE 107 U/L (40-150); ANION GAP 9 mmol/L (7-16); AST,SGOT 23 U/L (5-34); BILIRUBIN,TOTAL 0.4 mg/dL (0.2-1.2); BLOOD UREA NITROGEN 12 mg/dL (8-26); CALCIUM 9.1 mg/dL (8.4-10.2); CHLORIDE 101 mEq/L (98-107); CREATININE, serum 1.37 mg/dL (0.72-1.25); GLUCOSE 91 mg/dL (70-99); LIPASE 41 U/L (8-78); POTASSIUM 4.7 mEq/L (3.5-4.5); SODIUM 134 mEq/L (136-145); TOTAL PROTEIN 7.4 g/dl (6.2-8.1)
[2023-11-16 22:36] LABS: TROPONIN-I < 0.010 ng/mL (0.00-0.033)
[2023-11-16 22:58] VITALS: BP 136/92; PULSE 68
== END 2023-11-16 22:58 | disposition home or self-care (01) ==
LOC: COL.ER 21:49
PROVIDERS: Nurse Practitioner Primary Care
DX: R07.9 Chest pain, unspecified (principal); R51.9 Headache, unspecified

== ENCOUNTER 2023-12-03 16:04 | Emergency (ER) | payer MEDICARE, MEDICAID ==
[~2023-12-03] VITALS: Ht 180.3 cm; Wt 84.1 kg
[2023-12-03 16:06] VITALS: TEMP 98.3
[2023-12-03 16:58] VITALS: BP 150/89; PULSE 68
== END 2023-12-03 17:04 | disposition home or self-care (01) ==
LOC: COL.ER 16:04
DX: F20.0 Paranoid schizophrenia (principal); F17.210 Nicotine dependence, cigarettes, uncomplicated

== ENCOUNTER 2023-12-04 16:29 | Emergency (ER) | payer MEDICARE, MEDICAID ==
[~2023-12-04] VITALS: Ht 177.8 cm; Wt 84.1 kg
[2023-12-04 16:31] VITALS: BP 142/87; PULSE 73; TEMP 98.6
== END 2023-12-04 17:14 | disposition left against medical advice (07) ==
LOC: COL.ER 16:29
DX: R10.30 Lower abdominal pain, unspecified (principal); F17.210 Nicotine dependence, cigarettes, uncomplicated

== ENCOUNTER 2023-12-06 05:22 | Emergency (ER) | payer MEDICARE, MEDICAID ==
[2023-12-06 05:23] VITALS: TEMP 98.1
[2023-12-06] MEDS ORDERED: traZODone 100 MG TAB PO ONE (05:45)
[2023-12-06 06:06] VITALS: BP 135/80; PULSE 80
== END 2023-12-06 06:06 | disposition home or self-care (01) ==
LOC: COL.ER 05:22
DX: R10.84 Generalized abdominal pain (principal); F20.9 Schizophrenia, unspecified

== ENCOUNTER 2023-12-06 20:02 | Emergency (ER) | payer MEDICARE, MEDICAID ==
[~2023-12-06] VITALS: Ht 177.8 cm; Wt 77.8 kg
[2023-12-06 20:03] VITALS: TEMP 98.1
[2023-12-06 20:56] VITALS: BP 135/81; PULSE 65
== END 2023-12-06 21:29 | disposition home or self-care (01) ==
LOC: COL.ER 20:02
DX: M25.562 Pain in left knee (principal); F17.200 Nicotine dependence, unspecified, uncomplicated

== ENCOUNTER 2023-12-07 16:04 | Emergency (ER) | payer MEDICARE, MEDICAID ==
[~2023-12-07] VITALS: Ht 180.3 cm; Wt 84.1 kg
[2023-12-07 16:07] VITALS: BP 122/74; PULSE 65; TEMP 98
[2023-12-07 16:49] LABS: BASO # 0.1 K/mm3 (0.0-0.2); BASO % 1.4 % (0.0-2.0); EOS # 0.9 K/mm3 (0.0-0.7); EOS % 17.9 % (0.0-4.0); GRAN # 2.4 K/mm3 (1.4-6.5); HEMOGLOBIN 10.7 g/dl (13.5-18.0); LYMPH # 0.8 K/mm3 (1.2-3.4); LYMPH % 15.6 % (20.0-51.0); MEAN CELL VOLUME 92 fl (80.0-100.0); MEAN CORPUSCULAR HEMOGLOBIN 32 pg (27-31); MEAN CORPUSCULAR HGB CONC 35 g/dl (33.0-37.0); MEAN PLATELET VOLUME 8.8 fl (7.4-10.4); MONO # 0.9 K/mm3 (0.1-0.6); MONO % 17.9 % (1.7-9.3); PLATELET COUNT 172 K/mm3 (130-400); RED BLOOD COUNT 3.32 M/mm3 (4.20-5.60); REDCELL DISTRIBUTION WIDTH-CV 12.6 % (11.5-14.5)
[2023-12-07 16:52] LABS: HEMATOCRIT 30.5 % (42.0-52.0)
[2023-12-07 17:08] LABS: ALANINE AMINOTRANSFERASE 12 U/L (0-55); ALBUMIN 3.5 g/dL (3.4-4.8); ALKALINE PHOSPHATASE 90 U/L (40-150); ANION GAP 6 mmol/L (7-16); AST,SGOT 22 U/L (5-34); BILIRUBIN,TOTAL 0.4 mg/dL (0.2-1.2); BLOOD UREA NITROGEN 22 mg/dL (8-26); CALCIUM 8.9 mg/dL (8.4-10.2); CHLORIDE 96 mEq/L (98-107); CREATININE, serum 1.38 mg/dL (0.72-1.25); GLUCOSE 115 mg/dL (70-99); POTASSIUM 4.5 mEq/L (3.5-4.5); SODIUM 127 mEq/L (136-145); TOTAL PROTEIN 6.6 g/dl (6.2-8.1)
[2023-12-07 17:15] LABS: TROPONIN-I < 0.010 ng/mL (0.00-0.033)
[2023-12-07 17:15] LABS: COLLECTION METHOD CLEAN CATCH
[2023-12-07 17:22] LABS: URINE APPEARANCE CLEAR (CLEAR/HAZY); URINE BLOOD NEGATIVE (NEGATIVE); URINE COLOR YELLOW (YELLOW); URINE GLUCOSE NEGATIVE (NEGATIVE); URINE KETONE NEGATIVE (NEGATIVE); URINE NITRATE NEGATIVE (NEGATIVE); URINE PROTEIN(semi-quant) NEGATIVE (NEGATIVE); URINE UROBILINOGEN 0.2 E.U/dL (0.2-1.0)
[2023-12-07 17:31] LABS: TRICYCLIC ANTIDEPRESS URINE NEGATIVE (NEGATIVE)
== END 2023-12-07 17:23 | disposition left against medical advice (07) ==
LOC: COL.ER 16:04
PROVIDERS: Emergency Medicine
DX: R07.89 Other chest pain (principal); Z86.79 Personal history of other diseases of the circulatory system

== ENCOUNTER 2023-12-10 02:51 | Emergency (ER) | payer MEDICARE, MEDICAID ==
[~2023-12-10] VITALS: Ht 175.3 cm; Wt 86.4 kg
[2023-12-10 02:56] VITALS: TEMP 98.2
[2023-12-10 03:00] VITALS: BP 163/81; PULSE 75
[2023-12-10] MEDS ORDERED: OLANZapine 5 MG Orally-Disinteg TAB PO ONE (03:00)
== END 2023-12-10 03:04 | disposition left against medical advice (07) ==
LOC: COL.ER 02:51
DX: F20.9 Schizophrenia, unspecified (principal); F17.210 Nicotine dependence, cigarettes, uncomplicated

== ENCOUNTER 2023-12-11 00:51 | Emergency (ER) | payer MEDICARE, MEDICAID ==
[~2023-12-11] VITALS: Ht 175.3 cm; Wt 86.4 kg
[2023-12-11 00:52] VITALS: BP 130/72; PULSE 74; TEMP 98
[2023-12-11] MEDS ORDERED: Acetaminophen 500 MG TAB PO ONE (01:00)
[2023-12-11] MEDS ORDERED: Ibuprofen 400 MG TAB PO ONE (01:15)
== END 2023-12-11 01:55 | disposition home or self-care (01) ==
LOC: COL.ER 00:51
DX: R51.9 Headache, unspecified (principal); R11.0 Nausea; F17.210 Nicotine dependence, cigarettes, uncomplicated

== ENCOUNTER 2023-12-14 03:38 | Emergency (ER) | payer MEDICARE, MEDICAID ==
[~2023-12-14] VITALS: Ht 177.8 cm; Wt 77.3 kg
[2023-12-14 03:42] VITALS: BP 107/69; PULSE 88; TEMP 98.1
== END 2023-12-14 04:52 | disposition home or self-care (01) ==
LOC: COL.ER 03:38
DX: F20.0 Paranoid schizophrenia (principal); F17.210 Nicotine dependence, cigarettes, uncomplicated

== ENCOUNTER 2023-12-16 02:26 | Emergency (ER) | payer MEDICARE, MEDICAID ==
[~2023-12-16] VITALS: Ht 177.8 cm; Wt 79.5 kg
[2023-12-16] MEDS ORDERED: Acetaminophen 500 MG TAB PO ONE (02:30)
[2023-12-16] MEDS ORDERED: Sucralfate 1 G TAB PO ONE (02:30)
[2023-12-16 02:31] VITALS: BP 146/81
[2023-12-16 02:45] LABS: HEMOGLOBIN 12.3 g/dl (13.5-18.0); MEAN CELL VOLUME 93 fl (80.0-100.0); MEAN CORPUSCULAR HEMOGLOBIN 32 pg (27-31); MEAN CORPUSCULAR HGB CONC 34 g/dl (33.0-37.0); MEAN PLATELET VOLUME 8.8 fl (7.4-10.4); PLATELET COUNT 236 K/mm3 (130-400); RED BLOOD COUNT 3.86 M/mm3 (4.20-5.60); REDCELL DISTRIBUTION WIDTH-CV 12.9 % (11.5-14.5)
[2023-12-16 02:47] LABS: HEMATOCRIT 35.9 % (42.0-52.0)
[2023-12-16 02:55] LABS: ALBUMIN 3.6 g/dL (3.4-4.8); BILIRUBIN,TOTAL 0.4 mg/dL (0.2-1.2); C-REACTIVE PROTEIN 0.04 mg/dL (0.00-0.50); CALCIUM 9.2 mg/dL (8.4-10.2); CREATININE, serum 0.99 mg/dL (0.72-1.25); POTASSIUM 4.6 mEq/L (3.5-4.5)
[2023-12-16] MEDS ORDERED: traZODone 100 MG TAB PO ONE (03:00)
[2023-12-16 03:28] LABS: BASOPHIL 1 % (0-2); EOSINOPHIL 19 % (0-4); LYMPHOCYTE 17 % (20.0-51.0); NEUTROPHILS 44 % (42.0-75.2); PLATELET ESTIMATE NORMAL (NORMAL)
[2023-12-16 04:56] VITALS: PULSE 87
== END 2023-12-16 04:58 | disposition home or self-care (01) ==
LOC: COL.ER 02:26
PROVIDERS: Emergency Medicine
DX: R10.13 Epigastric pain (principal); D64.9 Anemia, unspecified; R11.0 Nausea

== ENCOUNTER 2023-12-17 21:44 | Emergency (ER) | payer MEDICARE, MEDICAID | END 2023-12-17 22:40 | disposition home or self-care (01) | LOC: COL.ER 21:44 | DX: M79.671 Pain in right foot (principal) ==

== ENCOUNTER 2024-01-24 23:58 | Emergency (ER) | payer MEDICARE, MEDICAID ==
[~2024-01-24] VITALS: Ht 182.9 cm; Wt 72.7 kg
[2024-01-25] VITALS: BP 120/63; PULSE 97; TEMP 98.6
== END 2024-01-25 02:32 | disposition left against medical advice (07) ==
LOC: COL.ER 23:58
DX: S09.90XA Unspecified injury of head, initial encounter (principal); W19.XXXA Unspecified fall, initial encounter

== ENCOUNTER 2024-02-03 02:29 | Emergency (ER) | payer MEDICARE, MEDICAID ==
[~2024-02-03] VITALS: Ht 180.3 cm; Wt 77.3 kg
[2024-02-03 02:30] VITALS: BP 138/82; PULSE 69; TEMP 98.1
[2024-02-03] MEDS ORDERED: clonazePAM 0.5 MG TAB PO ONE (02:45)
== END 2024-02-03 03:10 | disposition home or self-care (01) ==
LOC: COL.ER 02:29
DX: F43.9 Reaction to severe stress, unspecified (principal)

== ENCOUNTER 2024-02-20 09:35 | Emergency (ER) | payer MEDICARE, MEDICAID ==
[~2024-02-20] VITALS: Ht 188 cm; Wt 72.7 kg
[2024-02-20] MEDS ORDERED: OLANZapine 5 MG Orally-Disinteg TAB PO ONE (09:45)
[2024-02-20 09:58] LABS: BASO # 0.1 K/mm3 (0.0-0.2); BASO % 0.7 % (0.0-2.0); EOS # 0.5 K/mm3 (0.0-0.7); EOS % 5.7 % (0.0-4.0); GRAN # 6.1 K/mm3 (1.4-6.5); GRAN % 66.6 % (42.2-75.2); HEMOGLOBIN 11.1 g/dl (13.5-18.0); LYMPH # 1.2 K/mm3 (1.2-3.4); LYMPH % 12.9 % (20.0-51.0); MEAN CELL VOLUME 97 fl (80.0-100.0); MEAN CORPUSCULAR HEMOGLOBIN 31 pg (27-31); MEAN CORPUSCULAR HGB CONC 32 g/dl (33.0-37.0); MEAN PLATELET VOLUME 8.4 fl (7.4-10.4); MONO # 1.3 K/mm3 (0.1-0.6); MONO % 13.8 % (1.7-9.3); PLATELET COUNT 260 K/mm3 (130-400); RED BLOOD COUNT 3.55 M/mm3 (4.20-5.60); REDCELL DISTRIBUTION WIDTH-CV 12.9 % (11.5-14.5)
[2024-02-20] MEDS ORDERED: droPERidol 2.5 MG/ML 2 ML VIAL IM ONE ×2 (10:00→10:45)
[2024-02-20 10:03] LABS: HEMATOCRIT 34.5 % (42.0-52.0)
[2024-02-20 10:21] LABS: ALANINE AMINOTRANSFERASE 22 U/L (0-55); ALBUMIN 3.6 g/dL (3.4-4.8); ALKALINE PHOSPHATASE 112 U/L (40-150); ANION GAP 10 mmol/L (7-16); AST,SGOT 26 U/L (5-34); BILIRUBIN,TOTAL 0.3 mg/dL (0.2-1.2); BLOOD UREA NITROGEN 23 mg/dL (8-26); CALCIUM 8.9 mg/dL (8.4-10.2); CHLORIDE 95 mEq/L (98-107); CREATININE, serum 1.36 mg/dL (0.72-1.25); GLUCOSE 123 mg/dL (70-99); POTASSIUM 4.7 mEq/L (3.5-4.5); SODIUM 131 mEq/L (136-145); TOTAL PROTEIN 7.3 g/dl (6.2-8.1)
[2024-02-20 10:35] LABS: ALCOHOL(ethanol),MEDICAL < 10 mg/dL (0-10); SALICYLATE < 5.0 mg/dL (15.0-30.0)
[2024-02-20 10:41] LABS: TSH w REFLEX 3.689 uIU/mL (0.350-4.940)
[2024-02-20 11:51] LABS: TRICYCLIC ANTIDEPRESS URINE NEGATIVE (NEGATIVE)
--- NOTE | 2024-02-20 12:53 | NUR ---
Patient presented in Emergency Department and is screened by [facility] health services to meet involuntary commitment to the [facility]. Patient is a client of the Community Care Team (CCT). The CCT and multiple community agencies have been trying to place patient in a [facility] facility as patient is unable to maintain a safe environment due to untreated mental illness. The Department of children and families (Adult Protection Division) state that they have an assessment and paperwork that confirms the patient requires a Guardianship. This worker contacted [facility] at [facility] and requested a copy of this documentation that supports guardianship. Will await placement to [facility].
--- NOTE | 2024-02-20 13:25 | NUR ---
head screen worker spoke with Rubio Angel, employment attorney with [place] [employer] and confirmed that they can only release the assessment, stating that patient requires a guardian if they get a subpeona. Rubio also stated that they can only accept a guardian candidate from the [place] Guardianship program.
[2024-02-20] MEDS ORDERED: OLANZapine 5 MG TAB PO ONE (15:45)
[2024-02-20] MEDS ORDERED: clonazePAM 0.25 MG TAB PO ONE (15:45)
[2024-02-20] MEDS ORDERED: clonazePAM 0.25 MG TAB PO SCH (20:00)
[2024-02-21 12:30] VITALS: BP 141/71; PULSE 65; TEMP 97.3
== END 2024-02-21 12:30 ==
LOC: COL.ER 09:35
PROVIDERS: Emergency Medicine
DX: F99 Mental disorder, not otherwise specified (principal)
CPT/HCPCS: J1790